=== PATIENT | male | born 1965 | race Caucasian/White ===

== ENCOUNTER 2020-03-25 11:14 | Inpatient (IN) | payer BC, OTHER ==
[~2020-03-25] VITALS: Ht 167.6 cm; Wt 86.6 kg
[2020-03-25] MEDS ORDERED: ACETAMINOPHEN ES 500 MG TABLET ONE (11:54)
[2020-03-25] MEDS ORDERED: ACETAMINOPHEN ES 500 MG TABLET PO ONE (12:00)
--- NOTE | 2020-03-25 12:00 | NUR ---
BIB DAUGHTER, WORSENING SOB, COUGH, FEVER AND CHILLS. +COVID ON THURSDAY. PATIENT A/OX4, ON ROOM AIR WITH SPO2 OF 88%. APPLIED O2 5LPM VIA NC, TOLERATING WELL AT THIS TIME. VS STABLE. ATTACHED TO THE MONITOR.
[2020-03-25 12:15] LABS: BASOPHILS % (AUTO) 0.2 % (0.0-2.0); EOSINOPHILS % (AUTO) 0.2 % (0.0-6.0); HEMATOCRIT 42 % (39-51); HEMOGLOBIN 14.4 g/dL (13.5-17.5); LYMPHOCYTES # (AUTO) 0.6 /CMM (0.8-4.8); MEAN CORPUSCULAR HGB CONC 34 g/dl (31.0-36.0); MEAN CORPUSCULAR VOLUME 90 fL (80-96); MONOCYTES # (AUTO) 0.5 /CMM (0.1-1.30); MONOCYTES % (AUTO) 4.3 % (2.0-12.0); NEUTROPHILS # (AUTO) 9.6 /CMM (1.8-8.9); NEUTROPHILS % (AUTO) 89.3 % (43.0-81.0); PLATELET COUNT (AUTO) 280 /CMM (150-450); WHITE BLOOD COUNT (AUTO) 10.8 K/uL (4.3-11.0)
--- NOTE | 2020-03-25 12:15 | NUR ---
BLOOD DRAWN AND SENT TO LAB. FLU AND COVID SWAB SENT.
[2020-03-25 12:32] LABS: ABG BASE EXCESS -0.9 mmol/L; ABG OXYGEN SATURATION 97.3 % (92.0-98.5); ABG PCO2 35.9 mmHg (35.0-45.0); ABG PH 7.425 (7.350-7.450); ABG PO2 92.9 mmHg (75.0-100.0); COHb 1.1 % (0.5-1.5); MetHb 0.3 % (0.0-1.5); O2Hb 95.9 % (94.0-97.0); SITE, ABG Right Radial; VENT MODE, BG nasal cannula
[2020-03-25 12:50] LABS: CALCIUM, SERUM 9.3 mg/dL (8.5-10.1); CARBON DIOXIDE 29 mmol/L (21-32); CHLORIDE 101 mmol/L (98-107); CREATININE 0.9 mg/dL (0.6-1.3); GLUCOSE 133 mg/dL (74-106); POTASSIUM 3.6 mmol/L (3.5-5.1); SODIUM SERUM 139 mmol/L (136-145); UREA NITROGEN, BLOOD 12 mg/dL (7-18)
[2020-03-25 13:02] LABS: ALANINE AMINOTRANSFERASE 36 U/L (12-78); ALBUMIN 3.4 g/dL (3.4-5.0); ALKALINE PHOSPHATASE 73 U/L (46-116); ASPARTATE AMINOTRANSFERASE 43 U/L (15-37); B-TYPE NATRIURETIC PEPTIDE 149 PG/ML (0-125); BILIRUBIN,TOTAL 0.7 mg/dL (0.2-1.0); TOTAL PROTEIN, SERUM 8.2 g/dL (6.4-8.2)
[2020-03-25] MEDS ORDERED: CHOL100040 PO (13:03)
[2020-03-25] MEDS ORDERED: ACET-868 PO (13:03)
[2020-03-25] MEDS ORDERED: MULT-447 PO (13:03)
[2020-03-25] MEDS ORDERED: METF-440 PO (13:03)
[2020-03-25] MEDS ORDERED: GUAI100S11 PO (13:03)
--- NOTE | 2020-03-25 13:13 | NUR ---
[facility] CALLED INFORMATION SYSTEMS ANALYST PAGED. ADEN GUERRA.
[2020-03-25 13:35] LABS: CREATINE KINASE, TOTAL 61 U/L (39-308); FERRITIN 994 ng/mL (8-388)
[2020-03-25 13:37] LABS: C-REACTIVE PROTEIN 35.7 mg/dL (0.0-0.9)
[2020-03-25] MEDS ORDERED: ONDANSETRON HCL/PF 4 MG/2 ML VIAL IVP PRN (14:00)
[2020-03-25] MEDS ORDERED: ACETAMINOPHEN 650 MG/SUPP.RECT RC PRN (14:00)
[2020-03-25] MEDS ORDERED: ALBUTEROL SULFATE 8 GM HFA.AER.AD IH PRN (14:00)
[2020-03-25 14:55] LABS: D-DIMER 0.95 mg/L(FEU (0.17-0.50)
--- NOTE | 2020-03-25 14:59 | NUR ---
PATIENT A/OX4, RESTING, NO DISTRESS NOTED, NEEDS ATTENDED. KEPT COMFORTABLE. ON O2 AT 5LPM VIA NC WITH SATURATION OF 98%. ORDERED FOOD FROM [employer].
[2020-03-25 16:04] LABS: BILIRUBIN,URINE NEGATIVE (NEGATIVE); COLOR,URINE YELLOW (YELLOW); LEUKOCYTE ESTERASE ,URINE NEGATIVE (NEGATIVE); NITRITE, URINE NEGATIVE (NEGATIVE); PROTEIN,URINE 30 mg/dl (NEGATIVE); UGLUCOSE NEGATIVE (NEGATIVE)
[2020-03-25 16:39] LABS: BACTERIA,URINE None seen /HPF (None Seen); SQUAMOUS EPITHELIAL CELL,UR 0-2 /HPF (None Seen); WBC,URINE 0-2 /HPF (0-3)
[2020-03-25] MEDS ORDERED: CEFTRIAXONE 1GM BAG (ER ONLY) 50 ML IV ONE (16:54)
[2020-03-25] MEDS ORDERED: DEXAMETHASONE SOD PHOSPHATE 10 MG/ML VIAL ONE (16:55)
[2020-03-25] MEDS ORDERED: DOXYCYCLINE HYCLATE (100 MG) 100 MG TABLET ONE (16:55)
[2020-03-25] MEDS: DEXAMETHASONE SOD PHOSPHATE 10 MG/ML VIAL IV SCH (17:00)
[2020-03-25] MEDS: DOXYCYCLINE HYCLATE (100 MG) 100 MG TABLET PO SCH (17:05)
[2020-03-25] MEDS: CEFTRIAXONE 1 G in IV D5W 50 ML IV SCH (17:05)
[2020-03-25] MEDS ORDERED: ENOXAPARIN SODIUM 40 MG/0.4 ML DISP.SYRIN SQ ONE (17:34)
[2020-03-25] MEDS: ENOXAPARIN SODIUM 40 MG/0.4 ML DISP.SYRIN SQ SCH (17:38)
--- NOTE | 2020-03-25 19:32 | NUR ---
rec'd pt in bed awake and alert, breathing evenly. o o3 at 3LPM via NC. kain well. denied any discomfort. needs attended. bed low locked. vss. will cont to monitor.
[2020-03-25] MEDS ORDERED: ACETAMINOPHEN 325 MG TABLET ONE (21:32)
[2020-03-25] MEDS: ACETAMINOPHEN 325 MG TABLET PO PRN (21:37)
--- NOTE | 2020-03-25 21:37 | NUR ---
tylenol given for c/o mild h/s. will cont to monitor
--- NOTE | 2020-03-26 02:16 | NUR ---
Patient is resting comfortably in bed with eyes closed. Easily aroused. VSS. will cont to moitor,
[2020-03-26 04:25] LABS: HEMATOCRIT 41 % (39-51); LYMPHOCYTES # (AUTO) 0.7 /CMM (0.8-4.8); LYMPHOCYTES % (AUTO) 5.9 % (20.0-44.0); MEAN CORPUSCULAR HGB CONC 34 g/dl (31.0-36.0); MEAN CORPUSCULAR VOLUME 91 fL (80-96); MONOCYTES # (AUTO) 0.3 /CMM (0.1-1.30); MONOCYTES % (AUTO) 2.6 % (2.0-12.0); NEUTROPHILS # (AUTO) 11.4 /CMM (1.8-8.9); NEUTROPHILS % (AUTO) 91.5 % (43.0-81.0); PLATELET COUNT (AUTO) 306 /CMM (150-450); RED BLOOD CELL COUNT(AUTO) 4.56 MIL/uL (4.5-6.0); WHITE BLOOD COUNT (AUTO) 12.5 K/uL (4.3-11.0)
[2020-03-26 04:40] LABS: ALBUMIN 3.1 g/dL (3.4-5.0); BILIRUBIN,TOTAL 0.7 mg/dL (0.2-1.0); CALCIUM, SERUM 10.1 mg/dL (8.5-10.1); CREATININE 0.9 mg/dL (0.6-1.3); TOTAL PROTEIN, SERUM 8.1 g/dL (6.4-8.2)
[2020-03-26] MEDS ORDERED: DOXYCYCLINE HYCLATE (100 MG) 100 MG TABLET ONE ×2 (06:34→17:06)
[2020-03-26] MEDS: DOXYCYCLINE HYCLATE (100 MG) 100 MG TABLET PO SCH ×2 (06:42→17:24)
--- NOTE | 2020-03-26 06:51 | NUR ---
pt in bed awake and akert. brathing evenly, on ongoing supplemental O2 at 4 LPM via NC. tolerated well. No SOB. NAD. needs attended. bed low locked . call light within reach,. will cont to monitor and will endorse to day shift for ULYSSES .
[2020-03-26] MEDS ORDERED: DEXAMETHASONE SOD PHOSPHATE 10 MG/ML VIAL ONE (08:33)
[2020-03-26] MEDS: DEXAMETHASONE SOD PHOSPHATE 10 MG/ML VIAL IV SCH (09:04)
--- NOTE | 2020-03-26 09:05 | NUR ---
PATIENT AWAKE ALERT AND ORIENTED X4, PROVIDED BREAKFAST. ON O2 AT 4LPM VIA NC WITH SPO2 OF 88%. INCREASED O2 TO 5LPM VIA NC. NO RESPIRATORY DISTRESS NOTED. NEEDS ATTENDED.
--- NOTE | 2020-03-26 13:22 | NUR ---
PATIENT CURRENTLY ON 5LPM VIA NC, NO DISTRESS NOTED. ATE LUNCH, NEEDS ATTENDED. WILL CONTINUE TO MONITOR.
--- NOTE | 2020-03-26 14:52 | NUR ---
PATIENT A/OX4, ON O2 AT 6LPM VIA NC WITH SPO2 OF 96%. GAVE INFORMATION REGARDING REMDESIVIR, HANDOUT PROVIDED, PER PATIENT WILL CALL FAMILY FIRST AND DISCUSS IT. WILL GET BACK TO ME IF HE AGREES OR NOT.
[2020-03-26] MEDS ORDERED: REMDESIVIR (CHARGED) 200 MG, *LOADING DOSE 1 EA in IV NS 0.9% 210 ML IV ONE (16:00)
[2020-03-26] MEDS ORDERED: ENOXAPARIN SODIUM 40 MG/0.4 ML DISP.SYRIN SQ ONE (17:06)
[2020-03-26] MEDS: CEFTRIAXONE 1 G in IV D5W 50 ML IV SCH (17:24)
[2020-03-26] MEDS: ENOXAPARIN SODIUM 40 MG/0.4 ML DISP.SYRIN SQ SCH (17:24)
--- NOTE | 2020-03-26 19:25 | NUR ---
PT RESTING COMFORTABLY IN BED. VITAL SIGNS STABLE. PT ON 6L NC, TOLERATING WELL O2 SAT 95%. STILL ON CONTINUOUS ACCOUNTING SUPPORT SPECIALIST AND PULSE OX, CALL LIGHT WITHIN REACH. WILL CONTINUE TO MONITOR.
--- NOTE | 2020-03-26 20:16 | NUR ---
Moy patterson in ED - 03/26/20 at 2239 by TIFFANIE PT O2 SAT 86% ON 6L NC, PLACED ON 10L SIMPLE FACE MASK TOLERATING WELL O2 SAT NOW 95%
--- NOTE | 2020-03-26 22:16 | NUR ---
PT O2 SAT 86% ON 6L NC, PLACED ON 10L SIMPLE FACE MASK TOLERATING WELL O2 SAT NOW 95%
--- NOTE | 2020-03-26 22:16 | NUR ---
NOTED TEMP 100.1 ALSO C/O MILD BODY ACHES. PER PRN ORDER, WILL ADMINISTER TYLENOL 650 MG PO X1 NOW
[2020-03-26] MEDS ORDERED: ACETAMINOPHEN 325 MG TABLET ONE (22:17)
--- NOTE | 2020-03-26 23:57 | NUR ---
PT SLEEPING COMFORTABLY IN BED. VITAL SIGNS STABLE. CALL LIGHT WITHIN REACH. STILL ON CONTINUOUS CHURN OPERATOR MARGARINE AND PULSE OX, WILL CONTINUE TO MONITOR
[2020-03-27 05:11] LABS: BASOPHILS % (AUTO) 0.1 % (0.0-2.0); HEMATOCRIT 39 % (39-51); HEMOGLOBIN 13.6 g/dL (13.5-17.5); LYMPHOCYTES # (AUTO) 1.3 /CMM (0.8-4.8); LYMPHOCYTES % (AUTO) 7.7 % (20.0-44.0); MEAN CORPUSCULAR HGB CONC 35 g/dl (31.0-36.0); MEAN CORPUSCULAR VOLUME 89 fL (80-96); MONOCYTES # (AUTO) 0.8 /CMM (0.1-1.30); MONOCYTES % (AUTO) 5.2 % (2.0-12.0); NEUTROPHILS # (AUTO) 14.2 /CMM (1.8-8.9); PLATELET COUNT (AUTO) 381 /CMM (150-450); RED BLOOD CELL COUNT(AUTO) 4.41 MIL/uL (4.5-6.0); WHITE BLOOD COUNT (AUTO) 16.4 K/uL (4.3-11.0)
[2020-03-27 05:30] LABS: ALBUMIN 2.9 g/dL (3.4-5.0); BILIRUBIN,DIRECT 0.1 mg/dL (0.0-0.2); BILIRUBIN,TOTAL 0.4 mg/dL (0.2-1.0); CALCIUM, SERUM 9.7 mg/dL (8.5-10.1); CREATININE 0.8 mg/dL (0.6-1.3); POTASSIUM 4.7 mmol/L (3.5-5.1); TOTAL PROTEIN, SERUM 7.5 g/dL (6.4-8.2)
--- NOTE | 2020-03-27 05:48 | NUR ---
M/S 116-2
[2020-03-27] MEDS ORDERED: DOXYCYCLINE HYCLATE (100 MG) 100 MG TABLET ONE (06:16)
[2020-03-27] MEDS: DOXYCYCLINE HYCLATE (100 MG) 100 MG TABLET PO SCH (06:22)
--- NOTE | 2020-03-27 06:27 | NUR ---
REPORT GIVEN TO PHILLIP VILLANUEVA FOR ULYSSES
--- NOTE | 2020-03-27 07:00 | NUR ---
RN NOTES PT IS A 54 YEAR OLD [place] SPEAKING MALE CAME FROM HOME TO HOSPITAL ER WITH REPORTS OF SHORTNESS OF BREATH CHILLS AND FEVER. PATIENT ARRIVED TO UNIT VIA GURNEY, PATIENT ALERT AND ORIENTED X4 PUPILS EQUAL AND REACTIVE TO LIGHT AND ACCOMMODATION. PT PREFERRED LANGUAGE OF COMMUNICATION IS [place] BUT CAN UNDERSTAND SINHALA WELL.NO SOB NOTED OR REPORTED AT THIS TIME. PT IS ON 4L OF OXYGEN VIA NASAL CANNULA. NO FEVER .NO PAIN OR DISCOMFORT REPORTED AT THIS TIME. PT HAS IV ACCES ON THE LEFT AC #18 NO PAIN REDNESS OR SWELLING AT IV SITE NOTED.PT IS AMBULATORY INDEPENDENT WITH ADL'S. SKIN IS WARM DRY AND INTACT NO BRUISING OR DISCOLORATION NOTED AT THIS TIME. ABDOMEN IS NON TENDER, NON DISTENDED TO PALPATION ACTIVE BOWEL SOUNDS HEARD IN ALL FOUR QUADRANTS UPON AUSCULTATION. BED IS LOCKED IN POSITION CALL LIGHT PLACED WITHIN REACH. PT ORIENTED TO UNIT AND ROOM ALL NEEDS MET AT THIS TIME WILL CONTINUE TO MONITOR.
--- NOTE | 2020-03-27 07:09 | NUR ---
PT TRANSFERRED PER ACLS PROTOCOL
[2020-03-27 08:00] VITALS: BP 137/65
[2020-03-27] MEDS: DEXAMETHASONE SOD PHOSPHATE 10 MG/ML VIAL IV SCH (09:59)
[2020-03-27 10:43] VITALS: BP 137/65
[2020-03-27 12:00] VITALS: BP 123/62
[2020-03-27] MEDS: ACETAMINOPHEN 325 MG TABLET PO PRN (13:32)
[2020-03-27 16:00] VITALS: BP 124/59
[2020-03-27] MEDS: REMDESIVIR (CHARGED) 100 MG in IV NS 0.9% 230 ML IV SCH (16:05)
[2020-03-27] MEDS: ENOXAPARIN SODIUM 40 MG/0.4 ML DISP.SYRIN SQ SCH (17:21)
--- NOTE | 2020-03-27 18:24 | NUR ---
RN NOTES PATIENT ALERT AND ORIENTED X4 PUPILS EQUAL AND REACTIVE TO LIGHT AND ACCOMMODATION. PT PREFERRED LANGUAGE OF COMMUNICATION IS LAO BUT CAN UNDERSTAND [place]ER[place] LEONEAN WELL.NO SOB NOTED OR REPORTED AT THIS TIME. PT IS ON 4L OF OXYGEN VIA NASAL CANNULA. NO FEVER .NO PAIN OR DISCOMFORT REPORTED AT THIS TIME. PT HAS IV ACCES ON THE LEFT AC #18 NO PAIN REDNESS OR SWELLING AT IV SITE NOTED.PT IS AMBULATORY INDEPENDENT WITH ADL'S. SKIN IS WARM DRY AND INTACT NO BRUISING OR DISCOLORATION NOTED AT THIS TIME. BED IS LOCKED IN POSITION CALL LIGHT PLACED WITHIN REACH. PT ORIENTED TO UNIT AND ROOM ALL NEEDS MET AT THIS TIME WILL . WILL ENDORSE TO ON COMING NURSE..
--- NOTE | 2020-03-27 19:50 | NUR ---
RN NOTES RECEIVED PATIENT IN BED. AO X 4. VERBALLY RESPONDING. ON O2 5L VIA NC. DENIES ANY SOB. NO DISTRESS NOTED. ON TELE MONITORING SR HR 64. L AC IV INTACT AND PATENT, FLUSHED ASEPTICALLY. ISOLATION PRECAUTION OBSERVED. ALL SAFETY MEASURES IMPLEMENTED PER PROTOCOL. CALL LIGHT WITHIN REACH. BED LOCKED IN LOWEST POSITION. SIDE RAILS UP X 2
[2020-03-27 20:00] VITALS: BP 132/62
[2020-03-28] VITALS (8 sets, daily range): BP systolic 125–135; BP diastolic 60–80
[2020-03-28 07:28] LABS: HEMATOCRIT 39 % (39-51); HEMOGLOBIN 13.2 g/dL (13.5-17.5); LYMPHOCYTES % (AUTO) 8.3 % (20.0-44.0); MEAN CORPUSCULAR HGB CONC 33 g/dl (31.0-36.0); MEAN CORPUSCULAR VOLUME 90 fL (80-96); MONOCYTES # (AUTO) 0.8 /CMM (0.1-1.30); MONOCYTES % (AUTO) 6.5 % (2.0-12.0); NEUTROPHILS # (AUTO) 10.4 /CMM (1.8-8.9); NEUTROPHILS % (AUTO) 85.2 % (43.0-81.0); PLATELET COUNT (AUTO) 452 /CMM (150-450); RED BLOOD CELL COUNT(AUTO) 4.38 MIL/uL (4.5-6.0); WHITE BLOOD COUNT (AUTO) 12.2 K/uL (4.3-11.0)
--- NOTE | 2020-03-28 07:35 | NUR ---
RN NOTES PT REMAINS IN BED BREATHING EVEN AND UNLABORED. WAS PUT ON 10L SIMPLE MASK DUE TO DESATING W/ NASAL CANNULA. PT TOLERATING SIMPLE MASK WITH O2 SAT 95 %. DENIES ANY SOB. TELE READING SR HR 64. STRICT ISOLATION PRECAUTION MAINTAINED. ALL SAFETY MEASURES IMPLEMENTED PER PROTOCOL. WILL ENDORSE TO [facility] SHIFT NURSE FOR ULYSSES.
[2020-03-28 07:47] LABS: ALBUMIN 2.8 g/dL (3.4-5.0); BILIRUBIN,DIRECT 0.2 mg/dL (0.0-0.2); BILIRUBIN,TOTAL 0.4 mg/dL (0.2-1.0); CALCIUM, SERUM 9.3 mg/dL (8.5-10.1); CREATININE 0.8 mg/dL (0.6-1.3); POTASSIUM 4.6 mmol/L (3.5-5.1); TOTAL PROTEIN, SERUM 7.1 g/dL (6.4-8.2)
--- NOTE | 2020-03-28 08:10 | NUR ---
PICKLING DRUM OPERATOR OPENING NOTE PATIENT IS IN BED RESTING. PATIENT IS IN NO ACUTE DISTRESS. NO SOB NOTED. PATIENT IS ON OXYGEN VIA MASK ON 10L. HOB ELEVATED. PATIENT IS ON VOCATIONAL SCHOOL TEACHER READING SR 77. SAFETY MEASURES ARE IN PLACE. PATIENTS BED IS LOCKED AND IN THE LOWEST POSITION WITH BED ALARM ON. SIDE RAILS ARE UP, CALL LIGHT WITHIN REACH. WILL CONTINUE TO MONITOR THROUGH OUT THE SHIFT.
[2020-03-28] MEDS: DEXAMETHASONE SOD PHOSPHATE 10 MG/ML VIAL IV SCH (09:02)
[2020-03-28 13:16] LABS: LYMPHOCYTES % (MANUAL) 8 % (16-48); MONOCYTES % (MANUAL) 6 % (0-11.0); NEUTROPHILS % (MANUAL) 86 (42-76)
[2020-03-28] MEDS: REMDESIVIR (CHARGED) 100 MG in IV NS 0.9% 230 ML IV SCH (15:30)
[2020-03-28] MEDS: ENOXAPARIN SODIUM 40 MG/0.4 ML DISP.SYRIN SQ SCH (17:56)
--- NOTE | 2020-03-28 17:56 | NUR ---
MEAT CUTTING BLOCK REPAIRER CLOSING NOTE PATIENT IS IN BED RESTING COMFORTABLY. PATIENT IS IN NO ACUTE DISTRESS. HOB ELEVATED. PATIENT IS ON 10L OXYGEN VIA MASK. PATIENT IS ON BEACH PATROL LIEUTENANT READING SR 75. SAFETY MEASURES ARE IN PLACE. BED IN THE LOWEST POSITION, WITH BED ALARM ON. CALL LIGHT WITHIN REACH. ENDORSE PATIENT TO THE POWER PLANT SUPERINTENDENT FOR ULYSSES.
--- NOTE | 2020-03-28 19:00 | NUR ---
furnace operator opening notes received patient in bed on 10 l via mask, tolerating well, no sob present or distress at this time , iv site to left ac removed leaking, new iv site to right ac #20 g intact and patent, on bus monitor sr 61, oriented to staff and call light and kept within reach, low bed and locked, fluids offered at this time remains comfortable, awaiting convalescent plasma, will continue to monitor.
--- NOTE | 2020-03-28 21:47 | NUR ---
learning disabled teacher notes pt c/o of indigestion hospitalist made aware, new order for maalox 30 ml prn,read back noted and carried out pt aware.
[2020-03-28] MEDS ORDERED: MAG HYDROX/AL HYDROX/SIMETH 30 ML UDC PO PRN (22:00)
--- NOTE | 2020-03-28 22:51 | NUR ---
furnace operator and tender notes convalescent plasma transfusion complete, no reactions during transfusion. vs 122/67,56,98.2,18,92% on 10 l via mask. tolerated well and states he feels fine.
[2020-03-29] VITALS: BP 122/68
[2020-03-29 04:23] VITALS: BP 130/68
[2020-03-29] MEDS: ACETAMINOPHEN 325 MG TABLET PO PRN (05:26)
--- NOTE | 2020-03-29 05:28 | NUR ---
alternative medicine practitioner notes pt complained of feeling chills and body aches, temperature taking 98.6. offered tylenol pt agreed. tylenol prn given as ordered, fluids offered will continue to monitor.
[2020-03-29 06:31] LABS: BASOPHILS % (AUTO) 0.1 % (0.0-2.0); EOSINOPHILS % (AUTO) 0.5 % (0.0-6.0); HEMATOCRIT 39 % (39-51); HEMOGLOBIN 13.5 g/dL (13.5-17.5); LYMPHOCYTES # (AUTO) 1.1 /CMM (0.8-4.8); LYMPHOCYTES % (AUTO) 7.5 % (20.0-44.0); MEAN CORPUSCULAR HGB CONC 34 g/dl (31.0-36.0); MEAN CORPUSCULAR VOLUME 89 fL (80-96); MONOCYTES # (AUTO) 1.1 /CMM (0.1-1.30); MONOCYTES % (AUTO) 7.2 % (2.0-12.0); NEUTROPHILS # (AUTO) 12.8 /CMM (1.8-8.9); NEUTROPHILS % (AUTO) 84.7 % (43.0-81.0); PLATELET COUNT (AUTO) 458 /CMM (150-450); RED BLOOD CELL COUNT(AUTO) 4.39 MIL/uL (4.5-6.0); WHITE BLOOD COUNT (AUTO) 15.2 K/uL (4.3-11.0)
--- NOTE | 2020-03-29 06:33 | NUR ---
rn cardiovascular icu closing notes patient in bed on 10 l via mask, tolerating well, no sob present or distress at this time , iv site to right ac #20 g intact and patent, on manufacturing technologist sr 71, call light kept within reach, low bed and locked, fluids offered at this time remains comfortable, tylenol prn was effective denies chills at this time,convalescent plasma given no adverse reactions , will continue to monitor and endorse to next shift.
[2020-03-29 07:03] LABS: ALBUMIN 2.7 g/dL (3.4-5.0); BILIRUBIN,DIRECT 0.2 mg/dL (0.0-0.2); BILIRUBIN,TOTAL 0.4 mg/dL (0.2-1.0); CALCIUM, SERUM 8.9 mg/dL (8.5-10.1); CREATININE 0.8 mg/dL (0.6-1.3); POTASSIUM 4.1 mmol/L (3.5-5.1); TOTAL PROTEIN, SERUM 6.9 g/dL (6.4-8.2)
--- NOTE | 2020-03-29 08:00 | NUR ---
RN Opening note Received patient in bed, AO x 4 able to responds all stimuli, Pt does no appears pain or distress. Skin is warm to touch keep clean/dry intact IV site, respiratory even and unlabored with oxygen at 10LPM mask O2sat 92%. Kept locked bed with elevated HOB for aspiration precaution and ensure airway and lowest bed foe safety. Call light within reach, will continue to monitor.
[2020-03-29] MEDS: DEXAMETHASONE SOD PHOSPHATE 10 MG/ML VIAL IV SCH (08:56)
[2020-03-29 09:46] LABS: LYMPHOCYTES % (MANUAL) 7 % (16-48); MONOCYTES % (MANUAL) 5 % (0-11.0); NEUTROPHILS % (MANUAL) 88 (42-76)
[2020-03-29 12:00] VITALS: BP 128/68
[2020-03-29] MEDS: REMDESIVIR (CHARGED) 100 MG in IV NS 0.9% 230 ML IV SCH (15:14)
[2020-03-29] MEDS: ENOXAPARIN SODIUM 40 MG/0.4 ML DISP.SYRIN SQ SCH (17:51)
--- NOTE | 2020-03-29 18:00 | NUR ---
RN closing Patient in bed resting, does no appears pain or discomfort. Skin is warm to touch kepp clean/dry, intact site on right AC, patient finished 3rd Remidesivir today and no adverse reaction observed. Respiratory even and unlabored with oxygen at 10LPM O2sat 91%, encouraged patient to use IS for lung exercise as tolerated. Kept elevated HOB for ensure air way and aspiration precaution and lowest bed for safety. Call light within reach, will endorse pole frame construction worker.
--- NOTE | 2020-03-29 19:45 | NUR ---
FLUTE GRINDER NOTES PATIENT IN BED, AWAKE, ALERT AND ORIENTED X 4. BREATHING EVEN AND UNLABORED ON 10L NC. SHOWS NO SIGNS OF ACUTE RESPIRATORY DISTRESS, NO ACUTE PAIN. TELE ST/SR. IV ON RAC 20G SL. SHOWS NO SIGNS INFILTRATION, NO REDNESS. SAFETY PRECAUTIONS IN PLACE. BED IN LOWEST POSITION, LOCKED, AND CALL LIGHT KEPT WITHIN REACH. WILL CONTINUE TO MONITOR.
[2020-03-29 20:00] VITALS: BP 122/53
[2020-03-30] VITALS (12 sets, daily range): BP systolic 108–139; BP diastolic 54–78
--- NOTE | 2020-03-30 07:12 | NUR ---
ENVIRONMENTAL SERVICES ASSISTANT NOTES PATIENT IN BED, ASLEEP, ALERT AND ORIENTED X 4. BREATHING EVEN AND UNLABORED ON 10L NC. SHOWS NO SIGNS OF ACUTE RESPIRATORY DISTRESS, NO ACUTE PAIN. TELE ST/SR. IV ON RAC 20G SL. SHOWS NO SIGNS INFILTRATION, NO REDNESS. ALL DUE MEDICATIONS GIVEN. ALL NEEDS ATTENED TO. SAFETY PRECAUTIONS IN PLACE. BED IN LOWEST POSITION, LOCKED, AND CALL LIGHT KEPT WITHIN REACH. WILL CONTINUE TO MONITOR. Addendum: 03/30/20 at 0809 by SHERRY HOLT RN PT DESATING ON 10L MASK. WAS CHANGED ON MIDNIGHT ON NONREBREATHER SATING 88- 93%.
[2020-03-30 07:24] LABS: BASOPHILS # (AUTO) 0.1 /CMM (0.0-0.2); BASOPHILS % (AUTO) 0.3 % (0.0-2.0); EOSINOPHILS % (AUTO) 2.1 % (0.0-6.0); HEMATOCRIT 42 % (39-51); HEMOGLOBIN 14.1 g/dL (13.5-17.5); LYMPHOCYTES # (AUTO) 1.3 /CMM (0.8-4.8); LYMPHOCYTES % (AUTO) 6.6 % (20.0-44.0); MEAN CORPUSCULAR HGB CONC 34 g/dl (31.0-36.0); MEAN CORPUSCULAR VOLUME 90 fL (80-96); MONOCYTES # (AUTO) 0.9 /CMM (0.1-1.30); MONOCYTES % (AUTO) 4.6 % (2.0-12.0); NEUTROPHILS # (AUTO) 16.5 /CMM (1.8-8.9); NEUTROPHILS % (AUTO) 86.4 % (43.0-81.0); PLATELET COUNT (AUTO) 552 /CMM (150-450); RED BLOOD CELL COUNT(AUTO) 4.68 MIL/uL (4.5-6.0); WHITE BLOOD COUNT (AUTO) 19.1 K/uL (4.3-11.0)
--- NOTE | 2020-03-30 07:30 | NUR ---
TELE/RN OPENING NOTE Received patient resting in bed, A&O x 4, [place] Citizen speaking. No complaints of pain/discomfort at this time. Breathing even and non-labored on 15 L via non-rebreather mask, saturating at 87-88%, stat ABG ordered. No respiratory or cardiac distress noted. On tele monitor, reading SR 79. IV access noted on R AC #20, patent and intact, and flushing well. Bed locked to its lowest position, side rails x 2 up, call light in hand. Will continue with current medical management.
[2020-03-30 07:39] LABS: ALBUMIN 2.7 g/dL (3.4-5.0); BILIRUBIN,DIRECT 0.2 mg/dL (0.0-0.2); BILIRUBIN,TOTAL 0.5 mg/dL (0.2-1.0); CALCIUM, SERUM 9.1 mg/dL (8.5-10.1); CREATININE 0.8 mg/dL (0.6-1.3); POTASSIUM 4.5 mmol/L (3.5-5.1); TOTAL PROTEIN, SERUM 7.1 g/dL (6.4-8.2)
[2020-03-30] MEDS: DEXAMETHASONE SOD PHOSPHATE 10 MG/ML VIAL IV SCH (08:20)
[2020-03-30 08:27] LABS: EOSINOPHILS % (MANUAL) 3 % (0-4); LYMPHOCYTES % (MANUAL) 14 % (16-48); MONOCYTES % (MANUAL) 3 % (0-11.0); NEUTROPHILS % (MANUAL) 80 (42-76)
--- NOTE | 2020-03-30 09:00 | NUR ---
TELE/RN NOTE Dr. Salguero ordered RT to put patient on high flow oxygen 60 L FiO2 100% + 15 L non-rebreather mask, currently saturating at 90-92%. Patient appears comfortable, no respiratory distress noted.
--- NOTE | 2020-03-30 11:30 | NUR ---
RN/NOTE Patient transferred to ICU status. Patient appears well and comfortable, A&O x 4, no acute distress noted. Denies and pain/discomfort at this time. On HFNC 60 L, FIO2 100%, and 15 L non-rebreather mask, saturating at 92-94%.
[2020-03-30] MEDS: REMDESIVIR (CHARGED) 100 MG in IV NS 0.9% 230 ML IV SCH (15:10)
[2020-03-30] MEDS: ENOXAPARIN SODIUM 40 MG/0.4 ML DISP.SYRIN SQ SCH (17:23)
--- NOTE | 2020-03-30 18:45 | NUR ---
ICU/RN CLOSING NOTE Patient in awake in prone position, A&O x 4. No complaints of pain/discomfort throughout shift. Breathing even and non-labored on HFNC 60 L, FIO2 100% + 15 L via non-rebreather mask, saturating at 92-93%. No respiratory or cardiac distress noted. On tele monitor, reading SR 75. IV access noted on R AC #20, patent and intact, and flushing well. Fall precautions maintained. Will endorse to mini shifter nurse.
[2020-03-31] VITALS (16 sets, daily range): BP systolic 87–134; BP diastolic 41–69
[2020-03-31] MEDS: DEXAMETHASONE SOD PHOSPHATE 10 MG/ML VIAL IV SCH (09:08)
[2020-03-31] MEDS: ENOXAPARIN SODIUM 40 MG/0.4 ML DISP.SYRIN SQ SCH (09:15)
[2020-03-31] MEDS: APIXABAN 5 MG TABLET PO SCH (18:54)
--- NOTE | 2020-03-31 19:10 | NUR ---
RN OPENING NOTES RECEIVED PT IN BED RESTING. A/O X4. GABONESE SPEAKING PRIMARILY. UNDERSTANDS VIETNAMESE, ABLE TO MAKE NEEDS KNOWN. PT IS ON 15L NON REBREATHER WITH HIGH FLOW AT 60LPM FIO2 100%. PT IS CURRENTLY AT 90% NO SOB OR RESP DISTRESS NOTED. PT TOLERATING WELL. BREATHING EVEN AND UNLABORED. ON CARDIAC MONITORING PT IS PRESENTING WITH NSR HEART OF 65 AT THIS TIME. IV SITE FLUSHED, SALINE LOCKED. PT DENIES PAIN AT THIS TIME. SAFETY MEASURES IN PLACE. HOB ELEVATED. SIDE RAILS UP X2. BED LOCKED IN LOWEST POSITION WITH CALL LIGHT WITHIN REACH, WILL CONTINUE TO MONITOR.
--- NOTE | 2020-03-31 19:47 | NUR ---
PATIENT IS ASLEEP IN SUPINE POSITION, A&oX4. NO COMPLAINTS OF PAIN/DISCOMFORT THROUGHOUT SHIFT. BREATHING EVEN AND NON-LABORED ON HFNC 60 L, FIO2 100% + 15L VIA NON REBREATHER MASK, SATURATING AT 90-93%. NO RESPIRATORY OR CARDIAC DISTRESS NOTED. ON TELE MONITOR, READING SR 66. IV ACCESS NOTED ON R AC #20, PATENT AND INTACT, AND FLUSHING WELL. FALL PRECAUTIONS MAINTAINED. BED KEPT AT LOWEST POSITION, CALL PANDEY WITHIN REACH, AND ALL HOSPITAL SAFETY PRECAUTIONS ARE IN PLACE. WILL ENDORSE TO AGRICULTURE INTERNSHIP NURSE.
--- NOTE | 2020-03-31 21:30 | NUR ---
CHANGED PULSE OX, SATURATION IS AT 94% AT THIS TIME. WILL CONTINUE TO MONITOR
[2020-04-01] VITALS (58 sets, daily range): BP systolic 92–133; BP diastolic 36–76
[2020-04-01 04:52] LABS: BASOPHILS % (AUTO) 0.1 % (0.0-2.0); EOSINOPHILS % (AUTO) 1.3 % (0.0-6.0); HEMATOCRIT 42 % (39-51); HEMOGLOBIN 14.1 g/dL (13.5-17.5); LYMPHOCYTES # (AUTO) 0.8 /CMM (0.8-4.8); LYMPHOCYTES % (AUTO) 3.6 % (20.0-44.0); MEAN CORPUSCULAR HGB CONC 33 g/dl (31.0-36.0); MEAN CORPUSCULAR VOLUME 91 fL (80-96); MONOCYTES # (AUTO) 0.7 /CMM (0.1-1.30); MONOCYTES % (AUTO) 3.3 % (2.0-12.0); NEUTROPHILS % (AUTO) 91.7 % (43.0-81.0); PLATELET COUNT (AUTO) 586 /CMM (150-450); RED BLOOD CELL COUNT(AUTO) 4.66 MIL/uL (4.5-6.0); WHITE BLOOD COUNT (AUTO) 20.8 K/uL (4.3-11.0)
[2020-04-01 05:10] LABS: CALCIUM, SERUM 9.1 mg/dL (8.5-10.1); CREATININE 0.8 mg/dL (0.6-1.3); POTASSIUM 4.1 mmol/L (3.5-5.1)
[2020-04-01 06:31] LABS: ABG OXYGEN SATURATION 91.1 % (92.0-98.5); ABG PCO2 31.4 mmHg (35.0-45.0); ABG PH 7.426 (7.350-7.450); ABG PO2 61.8 mmHg (75.0-100.0); AaDO2 619.8 mmHg; COHb 1.1 % (0.5-1.5); MetHb 0.1 % (0.0-1.5); SITE, ABG Left Radial
--- NOTE | 2020-04-01 06:31 | NUR ---
RN CLOSING NOTES NO SIGNIFICANT CHANGES. PT RESTED WELL THROUGHOUT NIGHT, EVEN WHEN ASLEEP O2 SAT 91-92% PT CURRENTLY AWAKE, RESTING IN BED. PT STILL ON SAME O2 SUPPLEMENTATION, WITH NRB AND HIGH FLOW, SATURATION 97% TOLERATING WELL. NO SOB OR RESP DISTRESS NOTED, BREATHING EVEN AND UNLABORED. STILL NSR HEART RATE OF 80 ON MACHINE LONG GOODS HELPER. PT DESAT DURING ORAL HYGIENE CARE, PT UNDERSTANDS TO PUT BACK NRB MASK. THEN SATURATION RETURNS TO NORMAL BASELINE. SAFETY MEASURES IN PLACE. HOB ELEVATED TOLERATED. SIDE RAILS X2. BED LOCKED IN LOWEST POSITION. CALL LIGHT WITHIN REACH WILL ENDORSE AM NURSE FOR CONTINUATION OF CARE.
[2020-04-01] MEDS: DEXAMETHASONE SOD PHOSPHATE 10 MG/ML VIAL IV SCH (08:29)
[2020-04-01] MEDS: APIXABAN 5 MG TABLET PO SCH ×2 (08:30→17:50)
[2020-04-01] MEDS: CODEINE/PROMETHAZINE HCL 5 ML UDC PO PRN ×2 (10:37→23:28)
[2020-04-01] MEDS ORDERED: ACETAMINOPHEN 325 MG TABLET PO ONE (14:30)
[2020-04-01] MEDS ORDERED: diphenhydrAMINE HCL 50 MG/ML VIAL IV ONE (14:30)
[2020-04-01] MEDS ORDERED: methylPREDNISolone SOD SUCC 40 MG/ML VIAL IV ONE (14:30)
[2020-04-01] MEDS ORDERED: TOCILIZUMAB 400 MG in IV NS 0.9% 80 ML IV ONE (15:00)
--- NOTE | 2020-04-01 21:40 | NUR ---
NO NGT ACCESS TO ADMIN NGT ORDERED MEDICATIONS. WILL MAKE MD OR MASTER PRINTER AWARE. Addendum: 04/01/20 at 2303 by MILDRED HOLT RN DISREGARD NOTE, WRONG PT
--- NOTE | 2020-04-01 23:06 | NUR ---
ENDORSED TO PHILLIP BLACK FOR CONTINUATION OF CARE.
[2020-04-02] VITALS (81 sets, daily range): BP systolic 95–182; BP diastolic 44–110
[2020-04-02 05:10] LABS: CALCIUM, SERUM 9.2 mg/dL (8.5-10.1); CREATININE 0.9 mg/dL (0.6-1.3)
[2020-04-02 05:12] LABS: BASOPHILS % (AUTO) 0.1 % (0.0-2.0); EOSINOPHILS % (AUTO) 2.2 % (0.0-6.0); HEMATOCRIT 43 % (39-51); HEMOGLOBIN 14.4 g/dL (13.5-17.5); LYMPHOCYTES % (AUTO) 5.7 % (20.0-44.0); MEAN CORPUSCULAR HGB CONC 34 g/dl (31.0-36.0); MEAN CORPUSCULAR VOLUME 90 fL (80-96); MONOCYTES # (AUTO) 0.5 /CMM (0.1-1.30); MONOCYTES % (AUTO) 2.8 % (2.0-12.0); NEUTROPHILS # (AUTO) 15.6 /CMM (1.8-8.9); NEUTROPHILS % (AUTO) 89.2 % (43.0-81.0); PLATELET COUNT (AUTO) 587 /CMM (150-450); RED BLOOD CELL COUNT(AUTO) 4.74 MIL/uL (4.5-6.0); WHITE BLOOD COUNT (AUTO) 17.5 K/uL (4.3-11.0)
--- NOTE | 2020-04-02 08:00 | NUR ---
RN NOTES RECEIVED PATIENT A/O X3, ON HIGH FLOW 60%, AND NON REBREATHER MASL 15L TOLORATING WELL., O2 SAT 90-92% AWAKE, REFUSED PAIN, NO SOB OR RESP DISTRESS NOTED, BREATHING EVEN AND UNLABORED. HOB ELEVATED TOLERATED. USING URINAL, TOLERATED BREAKFAST 50%, SIDE RAILS X2. BED LOCKED IN LOWEST POSITION. CALL LIGHT WITHIN REACH WILL MONITORING.
--- NOTE | 2020-04-02 08:17 | NUR ---
RN NOTE PATIENT AWAKE, A/OX4. NO COMPLAINTS OF PAIN/DISCOMFORT THROUGHOUT SHIFT. BREATHING EVEN AND NON-LABORED ON HFNC 60 L, FIO2 100% + 15L VIA NON REBREATHER MASK, SATURATING AT 90%. ON TELE MONITOR, READING SR 70'S. IV ACCESS NOTED ON R AC #20, PATENT AND INTACT, AND FLUSHING WELL. BED LOCKED AND IN LOWEST POSITION. CALL LIGHT WITHIN REACH. ENDORSED TO ONCOMING SHIFT.
[2020-04-02] MEDS: DEXAMETHASONE SOD PHOSPHATE 10 MG/ML VIAL IV SCH (10:04)
[2020-04-02] MEDS: APIXABAN 5 MG TABLET PO SCH ×2 (10:04→17:42)
[2020-04-02] MEDS: LISINOPRIL (20MG) 20 MG TABLET PO SCH (10:05)
--- NOTE | 2020-04-02 18:02 | NUR ---
RN NOTES PM CARE DONE, ADMINISTERED SCHEDULED MEDICATION. NO SIGNIFICANT OF RESPIRATORY CHANGES. O2 SAT 90%, WITH NRB 15L, AND HIGH FLOW 60% TOLERATING WELL. NO SOB OR RESP DISTRESS NOTED, BREATHING EVEN AND UNLABORED. INFUSING TKO ON RIGHT MIDLINE , SAFETY MEASURES IN PLACE. HOB ELEVATED TOLERATED. SIDE RAILS X2. BED LOCKED IN LOWEST POSITION. PATIENT SELF CARE, CALL LIGHT WITHIN REACH WILL ENDORSE ONCOMING NURSE FOR CONTINUATION OF CARE.
[2020-04-02] MEDS: CODEINE/PROMETHAZINE HCL 5 ML UDC PO PRN (22:45)
[2020-04-03] VITALS (37 sets, daily range): BP systolic 92–160; BP diastolic 45–106
[2020-04-03 04:47] LABS: BASOPHILS % (AUTO) 0.2 % (0.0-2.0); EOSINOPHILS % (AUTO) 1.5 % (0.0-6.0); HEMATOCRIT 43 % (39-51); HEMOGLOBIN 14.8 g/dL (13.5-17.5); LYMPHOCYTES # (AUTO) 0.7 /CMM (0.8-4.8); MEAN CORPUSCULAR HGB CONC 34 g/dl (31.0-36.0); MEAN CORPUSCULAR VOLUME 89 fL (80-96); MONOCYTES # (AUTO) 0.5 /CMM (0.1-1.30); MONOCYTES % (AUTO) 2.6 % (2.0-12.0); NEUTROPHILS # (AUTO) 16.8 /CMM (1.8-8.9); NEUTROPHILS % (AUTO) 91.7 % (43.0-81.0); PLATELET COUNT (AUTO) 573 /CMM (150-450); RED BLOOD CELL COUNT(AUTO) 4.82 MIL/uL (4.5-6.0); WHITE BLOOD COUNT (AUTO) 18.3 K/uL (4.3-11.0)
[2020-04-03 04:54] LABS: CREATININE 0.7 mg/dL (0.6-1.3); POTASSIUM 4.2 mmol/L (3.5-5.1)
--- NOTE | 2020-04-03 07:14 | NUR ---
RN NOTES NO CHANGES NOTED DURING SHIFT, REMAINED ON HIGH FLOW SATING WELL. SR ON TELE MONITOR. IV SITES INTACT FLUSHES WELL. ALL MEDICATION WERE GIVEN TOLERATED WELL, KEPT CLEAN DRY AND COMFORTABLE.NO S/S OF ACUTE DISTRESS NOTED. ALL SAFETY MEASURES IN PLACE, CALL LIGHT WITHIN REACH. ENDORSE TO AM NURSE FOR ULYSSES.
--- NOTE | 2020-04-03 07:43 | NUR ---
PT RECEIVED IN BED, ALERT AND ORIENTED X 4, CHILEAN SPEAKING. PT ON HIGH FLOW 60L AND 100% FIO2. PATIENT COMPLAINING OF SOB AT THIS TIME, O2 SATS 88-90%. RT AWARE. PT ON MONITOR SHOWING SB/SR, SKIN INTACT, PT HAS ANGIE MIDLINE AND RAC 20G INTACT, TKO. PT IN BED LOCKED LOWEST POSITION, CALL LIGHT WITHIN REACH, ALL SAFETY MEASURES IN PLACE. WILL CONTINUE TO MONITOR CLOSELY
[2020-04-03] MEDS: DEXAMETHASONE SOD PHOSPHATE 10 MG/ML VIAL IV SCH (07:58)
[2020-04-03] MEDS: LISINOPRIL (20MG) 20 MG TABLET PO SCH (07:59)
[2020-04-03] MEDS: APIXABAN 5 MG TABLET PO SCH ×2 (08:03→17:01)
--- NOTE | 2020-04-03 19:30 | NUR ---
RN NOTES RECEIVED PATIENT IN BED CONTINUES ON HIGH FLOE SATING 97%. TELE MONITOR SR IN 80'S. IV SITE INTACT PATENT FLUSHES WELL. ON CONTACT AND DROPLET ISOLATION. PATIENT IS CONTINENT WITH B&B. SAFETY MEASURES IN PLACE, JULIETTE LIGHT WITHIN REACH WILL CONT TO MONITOR FOR ULYSSES.
[2020-04-03] MEDS: CODEINE/PROMETHAZINE HCL 5 ML UDC PO PRN (21:08)
[2020-04-04] VITALS (64 sets, daily range): BP systolic 72–177; BP diastolic 35–104
[2020-04-04 04:24] LABS: BASOPHILS % (AUTO) 0.2 % (0.0-2.0); EOSINOPHILS % (AUTO) 1.9 % (0.0-6.0); HEMATOCRIT 49 % (39-51); HEMOGLOBIN 16.6 g/dL (13.5-17.5); LYMPHOCYTES # (AUTO) 1.1 /CMM (0.8-4.8); LYMPHOCYTES % (AUTO) 5.3 % (20.0-44.0); MEAN CORPUSCULAR HGB CONC 34 g/dl (31.0-36.0); MEAN CORPUSCULAR VOLUME 90 fL (80-96); MONOCYTES # (AUTO) 0.8 /CMM (0.1-1.30); MONOCYTES % (AUTO) 4.1 % (2.0-12.0); NEUTROPHILS # (AUTO) 18.2 /CMM (1.8-8.9); NEUTROPHILS % (AUTO) 88.5 % (43.0-81.0); PLATELET COUNT (AUTO) 631 /CMM (150-450); RED BLOOD CELL COUNT(AUTO) 5.47 MIL/uL (4.5-6.0); WHITE BLOOD COUNT (AUTO) 20.6 K/uL (4.3-11.0)
[2020-04-04 04:37] LABS: CALCIUM, SERUM 9.3 mg/dL (8.5-10.1); CREATININE 0.9 mg/dL (0.6-1.3); MAGNESIUM 2.6 mg/dL (1.8-2.4); PHOSPHORUS 4.1 mg/dL (2.5-4.9); POTASSIUM 4.3 mmol/L (3.5-5.1)
[2020-04-04] MEDS ORDERED: PROPOFOL 100 ML ONE (05:16)
[2020-04-04] MEDS ORDERED: SUCCINYLCHOLINE CHLORIDE 20 MG/ML VIAL IV ONE (05:30)
[2020-04-04] MEDS ORDERED: PROPOFOL 100 ML IV PRN (05:30)
[2020-04-04] MEDS ORDERED: ETOMIDATE 2 MG/ML VIAL IV ONE (05:30)
--- NOTE | 2020-04-04 05:30 | NUR ---
PATIENT REPORTED HAVING DIFFICULTY BREATHING, STAT ABG'S DONE RELAYED TO MD. PER DAVY HE IS COMING TO ASSES THE PATIENT. NEW ORDER TO INTUBATE THE PATIENT. ER DOC AND RT AT BED SIDE PATIENT INTUBATED ETT 7.5/25, AC-16, TV-450, FIO2-100, PEEP-5. SEDATED ON PROPOFOL AT 5MCG/KG/MIN.
[2020-04-04] MEDS: PROPOFOL 100 ML IV PRN ×6 (05:54→23:22)
--- NOTE | 2020-04-04 06:26 | NUR ---
pt intubated for respiratory distress sob and increased wob. pt sedated. Addendum: 04/04/20 at 0628 by BARI BECKER RT Amended: Links added.
[2020-04-04] MEDS ORDERED: NOREPINEPHRINE 4 MG/4 ML AMPUL IV ONE (06:30)
[2020-04-04] MEDS: NOREPINEPHRINE 8 MG in IV NS 0.9% 242 ML IV PRN ×4 (07:05→21:38)
[2020-04-04] MEDS: FENTANYL CITRAT IV 2,500 MCG in IV NS 0.9% 200 ML IV PRN ×2 (09:31→20:59)
[2020-04-04] MEDS ORDERED: SUCCINYLCHOLINE CHLORIDE 20 MG/ML VIAL ONE (09:32)
[2020-04-04] MEDS ORDERED: ETOMIDATE 2 MG/ML VIAL ONE (09:32)
[2020-04-04] MEDS: DEXAMETHASONE SOD PHOSPHATE 10 MG/ML VIAL IV SCH (09:52)
[2020-04-04] MEDS: APIXABAN 5 MG TABLET PO SCH ×2 (09:53→17:59)
[2020-04-04] MEDS: LISINOPRIL (20MG) 20 MG TABLET PO SCH (09:54)
[2020-04-04 11:12] LABS: ABG BASE EXCESS -6.2 mmol/L; ABG OXYGEN SATURATION 92.8 % (92.0-98.5); ABG PCO2 34.4 mmHg (35.0-45.0); ABG PH 7.346 (7.350-7.450); ABG PO2 71.7 mmHg (75.0-100.0); AaDO2 606.9 mmHg; COHb 0.1 % (0.5-1.5); MetHb 0.1 % (0.0-1.5); O2Hb 92.6 % (94.0-97.0); PEEP,BG 5 cm H2O; SITE, ABG Right Radial; VT, ABG 450 mL
--- NOTE | 2020-04-04 11:35 | NUR ---
PACKAGE DELIVERY DRIVER NOTES PT TRANSFERRED TO [facility]. BEDSIDE REPORT GIVEN TO MILDRED. Addendum: 04/04/20 at 1153 by BAHSIR CHIU RN DISREGARD DOCUMENTATION ABOVE. ERROR IN CHARTING.
--- NOTE | 2020-04-04 19:30 | NUR ---
RN NOTES RECEIVED PATIENT NON VERBAL ORALLY INTUBATED ON FULL VENT SUPPORT. VENT SETTING TOLERATING WELL ORDERED. SEDATED ON DIPRIVAN GTT AT 100MCG AND LEVO 0.3 INFUSING VIA SULLY MIDLINE INTACT, TELE MONITOR SR/ST. F/C DARNING WELL TO GRAVITY. NO S/S OF ACUTE DISTRESS NOTED. SAFETY MEASURES IN PLACE, CALL LIGHT WITHIN REACH. WILL CONT TO MONITOR FOR ULYSSES.
--- NOTE | 2020-04-04 19:38 | NUR ---
PT REC'D ORALLY INTUBATED VIA ETT 7.5 SECURED @ 28 CM [facility] WITH THE SETTINGS OF AC 16, 450, 70%,PEEP 10. NO RESPIRATORY DISTRESS NOTED AT THIS TIME. SX DONE . ALARMS ARE SET AND AUDIBLE. VENT PLUGGED INTO RED OUTLET. AMBU BAG@ BEDSIDE. WILL CONTINUE TO MONITOR T/O THE SHIFT.
[2020-04-05] VITALS (92 sets, daily range): BP systolic 59–157; BP diastolic 37–91
[2020-04-05] MEDS: PROPOFOL 100 ML IV PRN ×8 (01:38→18:50)
--- NOTE | 2020-04-05 02:00 | NUR ---
PT REMAINED ON SAME VENT SETTING TOLERATED WELL.WILL CONTINUE TO MONITOR
--- NOTE | 2020-04-05 03:00 | NUR ---
BED BATH RENDERED PATIENT TOLERATED WELL, KEPT CLEAN DRY AND COMFORTABLE. NO DISTRESS NOTED.
[2020-04-05 04:21] LABS: BASOPHILS # (AUTO) 0.1 /CMM (0.0-0.2); BASOPHILS % (AUTO) 0.3 % (0.0-2.0); EOSINOPHILS % (AUTO) 0.9 % (0.0-6.0); HEMATOCRIT 50 % (39-51); HEMOGLOBIN 16.4 g/dL (13.5-17.5); LYMPHOCYTES # (AUTO) 1.1 /CMM (0.8-4.8); LYMPHOCYTES % (AUTO) 3.1 % (20.0-44.0); MEAN CORPUSCULAR HGB CONC 33 g/dl (31.0-36.0); MEAN CORPUSCULAR VOLUME 91 fL (80-96); MONOCYTES # (AUTO) 1.5 /CMM (0.1-1.30); MONOCYTES % (AUTO) 4.2 % (2.0-12.0); NEUTROPHILS # (AUTO) 32.5 /CMM (1.8-8.9); NEUTROPHILS % (AUTO) 91.5 % (43.0-81.0); PLATELET COUNT (AUTO) 697 /CMM (150-450); RED BLOOD CELL COUNT(AUTO) 5.43 MIL/uL (4.5-6.0)
[2020-04-05 04:32] LABS: CALCIUM, SERUM 8.8 mg/dL (8.5-10.1); CREATININE 2.2 mg/dL (0.6-1.3); MAGNESIUM 3.3 mg/dL (1.8-2.4); POTASSIUM 5.9 mmol/L (3.5-5.1)
[2020-04-05 04:38] LABS: PHOSPHORUS 9.9 mg/dL (2.5-4.9)
[2020-04-05 05:06] LABS: WHITE BLOOD COUNT (AUTO) 35.6 K/uL (4.3-11.0)
[2020-04-05 06:00] LABS: LYMPHOCYTES % (MANUAL) 4 % (16-48); METAMYELOCYTES % 1 % (0-0); MONOCYTES % (MANUAL) 2 % (0-11.0); MYELOCYTES % 1 % (0-0); NEUTROPHILS % (MANUAL) 92 (42-76)
[2020-04-05] MEDS ORDERED: NOREPINEPHRINE 4 MG/4 ML AMPUL IV ONE (06:21)
[2020-04-05] MEDS: NOREPINEPHRINE 8 MG in IV NS 0.9% 242 ML IV PRN ×2 (06:48→09:12)
--- NOTE | 2020-04-05 07:30 | NUR ---
PT SEDATED W HOB ELEVATED. VENT SETTINGS ORDERED. SAO2 85-95%. NO SIGNS OF DISTRESS NOTED. ST 100-130S ON TELE. OGT 60 CM AT THE LIP. AUSCULTATED FOR PLACEMENT AND CHECKED RESIDUALS BEFORE EACH FLUSH AND VEGETABLE WORKER. DYER INTACT DRAINING DARK YELLOW URINE. SULLY MIDLINE AND RAC FLUSHED AND DRESSING INTACT. NO SIGNS OF INFILTRATION. ORDERED MEDICATIONS TITRATED ORDERED BY MD. PT VS MONITORED Q15MIN AND NEEDED. REPORTED TO MD NEEDED THROUGHOUT THE SHIFT. LABS MONITORED NEEDED. FAMILY AWARE OF PT STATUS. MD AWARE OF PT STATUS. TURNED Q2H AND REPOSITIONED. ENDORSED PLAN OF CARE TO PM RN. ALL HOSPITAL POLICY SAFETY PRECAUTIONS IMPLEMENTED. RAILS UPX2, HOB ELEVATED 30 DEGREES, BED LOW, LOCKED. Addendum: 04/05/20 at 2014 by MILDRED HOLT RN INCORRECT TIME
[2020-04-05 08:19] LABS: ABG BASE EXCESS -10.7 mmol/L; ABG OXYGEN SATURATION 94.8 % (92.0-98.5); ABG PCO2 83.3 mmHg (35.0-45.0); ABG PH 7.044 (7.350-7.450); AaDO2 322.6 mmHg; COHb 1.1 % (0.5-1.5); MetHb 0.5 % (0.0-1.5); O2Hb 93.3 % (94.0-97.0); PEEP,BG 10 cm H2O; SITE, ABG Right Brachial; VT, ABG 450 mL
--- NOTE | 2020-04-05 08:22 | NUR ---
vent changes below per dr. vargas: AC 28 VT 500 ml rn notified on vent changes made. Addendum: 04/05/20 at 0823 by PAOLA CHAMPION RT Amended: Links added.
[2020-04-05] MEDS: LISINOPRIL (20MG) 20 MG TABLET PO SCH (09:00)
[2020-04-05] MEDS: APIXABAN 5 MG TABLET PO SCH ×2 (09:18→18:33)
--- NOTE | 2020-04-05 09:18 | NUR ---
HELD ORDERED LISINOPRIL SBP <90 AND IS CONTROLLED W THE ORDERED LEVOPHED.
[2020-04-05 10:29] LABS: ABG BASE EXCESS -10.6 mmol/L; ABG OXYGEN SATURATION 95.5 % (92.0-98.5); ABG PCO2 50.4 mmHg (35.0-45.0); ABG PH 7.174 (7.350-7.450); ABG PO2 83.9 mmHg (75.0-100.0); COHb 0.3 % (0.5-1.5); MetHb 0.3 % (0.0-1.5); O2Hb 94.9 % (94.0-97.0); PEEP,BG 10 cm H2O; SITE, ABG Left Brachial; VT, ABG 500 mL
--- NOTE | 2020-04-05 10:34 | NUR ---
VENT CHANGES BELOW PER DR. ALEXIS: VT 550 ML RN NOTIFIED ON VENT CHANGES MADE. Addendum: 04/05/20 at 1035 by PAOLA CHAMPION RT Amended: Links added.
[2020-04-05] MEDS: FENTANYL CITRAT IV 2,500 MCG in IV NS 0.9% 200 ML IV PRN (10:51)
[2020-04-05] MEDS: NOREPINEPHRINE 32 MG in IV NS 0.9% 218 ML IV PRN ×2 (11:02→18:32)
[2020-04-05 13:27] LABS: BASOPHILS # (AUTO) 0.1 /CMM (0.0-0.2); BASOPHILS % (AUTO) 0.3 % (0.0-2.0); EOSINOPHILS % (AUTO) 0.7 % (0.0-6.0); HEMATOCRIT 50 % (39-51); HEMOGLOBIN 16.6 g/dL (13.5-17.5); LYMPHOCYTES # (AUTO) 1.3 /CMM (0.8-4.8); LYMPHOCYTES % (AUTO) 3.8 % (20.0-44.0); MEAN CORPUSCULAR HGB CONC 33 g/dl (31.0-36.0); MEAN CORPUSCULAR VOLUME 91 fL (80-96); MONOCYTES # (AUTO) 1.4 /CMM (0.1-1.30); NEUTROPHILS # (AUTO) 32.5 /CMM (1.8-8.9); NEUTROPHILS % (AUTO) 91.2 % (43.0-81.0); PLATELET COUNT (AUTO) 604 /CMM (150-450); RED BLOOD CELL COUNT(AUTO) 5.54 MIL/uL (4.5-6.0)
[2020-04-05 13:56] LABS: CALCIUM, SERUM 8.5 mg/dL (8.5-10.1); CREATININE 2.7 mg/dL (0.6-1.3); POTASSIUM 4.7 mmol/L (3.5-5.1)
[2020-04-05 14:05] LABS: WHITE BLOOD COUNT (AUTO) 35.7 K/uL (4.3-11.0)
[2020-04-05 14:33] LABS: ABG BASE EXCESS -4.4 mmol/L; ABG OXYGEN SATURATION 94.1 % (92.0-98.5); ABG PCO2 40.1 mmHg (35.0-45.0); ABG PH 7.338 (7.350-7.450); ABG PO2 68.6 mmHg (75.0-100.0); AaDO2 604.3 mmHg; COHb 0.3 % (0.5-1.5); MetHb 0.5 % (0.0-1.5); O2Hb 93.3 % (94.0-97.0); PEEP,BG 10 cm H2O; SITE, ABG Right Radial; VT, ABG 550 mL
[2020-04-05] MEDS: PHENYLEPHRINE 100 MG in IV NS 0.9% 240 ML IV PRN (17:40)
[2020-04-05] MEDS ORDERED: IV NS 0.9% 500 ML IV ONE (18:30)
[2020-04-05] MEDS: IV NS 0.9% 1,000 ML IV PRN (18:52)
--- NOTE | 2020-04-05 19:00 | NUR ---
Received patient orally intubated on AC mode,PEEP=10 ,labored breathing with deep inspiratory effort..Covid +.Unresponsive, but on sedation with Propofol drip and on Fentanyl drip. S/P code today. Tachycardic DI=442's. Hypotensive at 1900 On Levophed drip and Neosynephrine drip for BP support . OGT (will start feeding if Pump available).
[2020-04-05 19:23] LABS: BAND % (MANUAL) 1 % (0.0-5.0); LYMPHOCYTES % (MANUAL) 1 % (16-48); MONOCYTES % (MANUAL) 2 % (0-11.0); NEUTROPHILS % (MANUAL) 96 (42-76)
--- NOTE | 2020-04-05 19:30 | NUR ---
PT SEDATED W HOB ELEVATED. VENT SETTINGS ORDERED. SAO2 85-95%. NO SIGNS OF DISTRESS NOTED. ST 100-130S ON TELE. OGT 60 CM AT THE LIP. AUSCULTATED FOR PLACEMENT AND CHECKED RESIDUALS BEFORE EACH FLUSH AND ENVIRONMENTAL RESEARCH PROJECT MANAGER. DYER INTACT DRAINING DARK YELLOW URINE. SULLY MIDLINE AND RAC FLUSHED AND DRESSING INTACT. NO SIGNS OF INFILTRATION. ORDERED MEDICATIONS TITRATED ORDERED BY MD. PT VS MONITORED Q15MIN AND NEEDED. REPORTED TO MD NEEDED THROUGHOUT THE SHIFT. LABS MONITORED NEEDED. FAMILY AWARE OF PT STATUS. MD AWARE OF PT STATUS. TURNED Q2H AND REPOSITIONED. ENDORSED PLAN OF CARE TO PM RN. ALL HOSPITAL POLICY SAFETY PRECAUTIONS IMPLEMENTED. RAILS UPX2, HOB ELEVATED 30 DEGREES, BED LOW, LOCKED.
[2020-04-05] MEDS ORDERED: VANCOMYCIN 1 GM in IV D5W 250 ML IV SCH (20:00)
[2020-04-05] MEDS: MEROPENEM 1 G in IV NS 0.9% 100 ML IV SCH (21:26)
[2020-04-06] VITALS (86 sets, daily range): BP systolic 85–159; BP diastolic 34–87
--- NOTE | 2020-04-06 | NUR ---
more responsive to pain,with cough and gag, BP more stable,weaning down on Pressors as tolerated.
[2020-04-06] MEDS: PHENYLEPHRINE 100 MG in IV NS 0.9% 240 ML IV PRN ×2 (00:13→15:13)
[2020-04-06] MEDS: NOREPINEPHRINE 32 MG in IV NS 0.9% 218 ML IV PRN ×2 (00:16→15:16)
[2020-04-06] MEDS: PROPOFOL 100 ML IV PRN ×7 (02:13→21:33)
[2020-04-06] MEDS: FENTANYL CITRAT IV 2,500 MCG in IV NS 0.9% 200 ML IV PRN ×2 (02:25→17:37)
[2020-04-06] MEDS: JEVITY 1.2 CAL 1,000 ML BOTTLE GT PRN (02:36)
--- NOTE | 2020-04-06 04:00 | NUR ---
More responsive ,getting restless at times, moves extremities,will put back /obtain order for wrist restraints.Increased Propofol drip as tolerated.
[2020-04-06 05:50] LABS: CREATININE 1.2 mg/dL (0.6-1.3); POTASSIUM 4.6 mmol/L (3.5-5.1)
[2020-04-06 06:08] LABS: ABG BASE EXCESS -2.7 mmol/L; ABG OXYGEN SATURATION 88.6 % (92.0-98.5); ABG PCO2 44.4 mmHg (35.0-45.0); ABG PH 7.337 (7.350-7.450); ABG PO2 56.9 mmHg (75.0-100.0); AaDO2 466.9 mmHg; COHb 0.3 % (0.5-1.5); MetHb 0.1 % (0.0-1.5); O2Hb 88.2 % (94.0-97.0); SITE, ABG Right Radial
[2020-04-06] MEDS: IV NS 0.9% 1,000 ML IV PRN ×2 (06:15→17:29)
--- NOTE | 2020-04-06 07:15 | NUR ---
CASH SPECIALIST NOTES RECEIVED PATIENT SEDATED , RESPONSIVE TO DEEP PAIN STIMULI , TOLERATING CURRENT VENT SETTINGS WITH SPO2 OF 98% , ETT 7.5/[address] , ST 102 ON BEDSIDE MONITOR , OGT PATENT AND INTACT WITH JEVITY @ 40ML/HR TOLERATING WELL WITH NO RESIDUALS NOTED , SULLY MIDLINE WITH LEVOPHED @ 0.3MCG/KG/MIN , NEOSYNEPRINE @1MCG/KG/MIN , DIPRIVAN @ 50MCG/KG/MIN , FENTANYL @ 2MCG/KG/MIN , NS @100ML/HR INFUSING WELL , R AC # 20 PATENT AND INTACT , ALL NEEDS ATTENDED , WILL CONTINUE TO MONITOR
[2020-04-06] MEDS: LISINOPRIL (20MG) 20 MG TABLET PO SCH (08:38)
[2020-04-06] MEDS: MEROPENEM 1 G in IV NS 0.9% 100 ML IV SCH ×2 (08:39→21:30)
[2020-04-06] MEDS: APIXABAN 5 MG TABLET PO SCH ×2 (08:39→17:29)
[2020-04-06] MEDS ORDERED: EPINEPHRINE (1:10,000) SYRINGE 1 MG/10 ML DISP.SYRIN IVP ONE (09:18)
[2020-04-06] MEDS ORDERED: FEE EMEERGENCY 1 MIN EA MC ONE (09:18)
[2020-04-06] MEDS ORDERED: SODIUM BICARBONATE SYR 50 MEQ/50 ML DISP.SYRIN IV ONE (09:18)
[2020-04-06 09:49] LABS: BILIRUBIN,DIRECT 0.1 mg/dL (0.0-0.2); BILIRUBIN,TOTAL 0.3 mg/dL (0.2-1.0)
--- NOTE | 2020-04-06 11:10 | NUR ---
PROGRAMMER OPERATOR NUMERICAL CONTROL NOTES SEEN AND EVALUATED BY DR ALEXIS , DISCUSSED LABS , CURRENT VENT SETTINGS AND CHEST XRAY RESULTS , PT LOW GRADE TEMP OF 99 F , PT ON LEVO @0.2MCG/KG/MIN , NEOSYNEPRINE @ 1MCG/KG/MIN , FENTANYL @ 2MCG/KG.MIN , DIPRIVAN @ 50MCG/KG/MIN , MD AWARE , PER MD INCREASE SEDATION PT OVER BREATHING THE VENT .
[2020-04-06] MEDS: VANCOMYCIN 1 GM in IV D5W 250 ML IV SCH (17:28)
[2020-04-07] VITALS (96 sets, daily range): BP systolic 67–197; BP diastolic 34–108
[2020-04-07] MEDS: PROPOFOL 100 ML IV PRN ×9 (00:38→23:22)
[2020-04-07] MEDS: JEVITY 1.2 CAL 1,000 ML BOTTLE GT PRN (02:00)
[2020-04-07] MEDS: VANCOMYCIN 1 GM in IV D5W 250 ML IV SCH (04:30)
[2020-04-07] MEDS: FENTANYL CITRAT IV 2,500 MCG in IV NS 0.9% 200 ML IV PRN ×2 (04:38→12:32)
[2020-04-07 04:55] LABS: BASOPHILS # (AUTO) 0.2 /CMM (0.0-0.2); BASOPHILS % (AUTO) 1.1 % (0.0-2.0); EOSINOPHILS % (AUTO) 2.8 % (0.0-6.0); HEMATOCRIT 38 % (39-51); HEMOGLOBIN 12.8 g/dL (13.5-17.5); LYMPHOCYTES # (AUTO) 1.3 /CMM (0.8-4.8); LYMPHOCYTES % (AUTO) 6.9 % (20.0-44.0); MEAN CORPUSCULAR HGB CONC 34 g/dl (31.0-36.0); MEAN CORPUSCULAR VOLUME 91 fL (80-96); MONOCYTES # (AUTO) 0.7 /CMM (0.1-1.30); MONOCYTES % (AUTO) 3.5 % (2.0-12.0); NEUTROPHILS # (AUTO) 15.8 /CMM (1.8-8.9); NEUTROPHILS % (AUTO) 85.7 % (43.0-81.0); PLATELET COUNT (AUTO) 345 /CMM (150-450); RED BLOOD CELL COUNT(AUTO) 4.15 MIL/uL (4.5-6.0); WHITE BLOOD COUNT (AUTO) 18.5 K/uL (4.3-11.0)
[2020-04-07 05:01] LABS: CALCIUM, SERUM 7.8 mg/dL (8.5-10.1); CREATININE 0.8 mg/dL (0.6-1.3); POTASSIUM 4.8 mmol/L (3.5-5.1)
[2020-04-07 05:40] LABS: ABG OXYGEN SATURATION 97.9 % (92.0-98.5); ABG PCO2 39.7 mmHg (35.0-45.0); ABG PH 7.379 (7.350-7.450); ABG PO2 109.7 mmHg (75.0-100.0); AaDO2 491.3 mmHg; COHb 0.4 % (0.5-1.5); MetHb 0.1 % (0.0-1.5); O2Hb 97.4 % (94.0-97.0); PEEP,BG 10 cm H2O; SITE, ABG Right Radial; VENT MODE, BG AC 28 550 90% +10; VT, ABG 550 mL
[2020-04-07] MEDS: PHENYLEPHRINE 100 MG in IV NS 0.9% 240 ML IV PRN ×3 (05:55→17:35)
[2020-04-07] MEDS: IV NS 0.9% 1,000 ML IV PRN ×2 (06:46→15:56)
--- NOTE | 2020-04-07 07:15 | NUR ---
TAILINGS DAM LABORER NOTES RECEIVED PATIENT SEDATED , RESPONSIVE TO DEEP PAIN STIMULI , TOLERATING CURRENT VENT SETTINGS WITH SPO2 OF 95% , ETT 7.5/[address] , SR85 ON BEDSIDE MONITOR , OGT PATENT AND INTACT WITH JEVITY @ 40ML/HR TOLERATING WELL WITH NO RESIDUALS NOTED , SULLY PICC LINE WITH LEVOPHED @ 0.1MCG/KG/MIN , NEOSYNEPRINE @3MCG/KG/MIN , DIPRIVAN @ 70MCG/KG/MIN , FENTANYL @ 2MCG/KG/MIN , NS @100ML/HR INFUSING WELL , R AC # 20 PATENT AND INTACT , ALL NEEDS ATTENDED , WILL CONTINUE TO MONITOR
[2020-04-07] MEDS: LISINOPRIL (20MG) 20 MG TABLET PO SCH (08:46)
[2020-04-07] MEDS: APIXABAN 5 MG TABLET PO SCH ×2 (08:47→16:56)
[2020-04-07] MEDS: MEROPENEM 1 G in IV NS 0.9% 100 ML IV SCH ×2 (08:48→20:20)
[2020-04-07 12:44] LABS: ABG BASE EXCESS -2.9 mmol/L; ABG OXYGEN SATURATION 89.9 % (92.0-98.5); ABG PCO2 45.6 mmHg (35.0-45.0); ABG PH 7.325 (7.350-7.450); ABG PO2 60.4 mmHg (75.0-100.0); AaDO2 353.5 mmHg; COHb 0.6 % (0.5-1.5); MetHb 0.6 % (0.0-1.5); O2Hb 88.8 % (94.0-97.0); PEEP,BG 8 cm H2O; SITE, ABG Left Brachial; VT, ABG 500 mL
--- NOTE | 2020-04-07 14:12 | NUR ---
METAL SORTER NOTES REPEAT CHEST XRAY RESULTS RELAYED DR DR ZA MD AWARE
[2020-04-07] MEDS: VANCOMYCIN 1.25 GM in IV D5W 250 ML IV SCH (17:37)
--- NOTE | 2020-04-07 19:30 | NUR ---
ICU OPENING NOTES RECEIVED PATIENT;SEDATED WITH DIPRIVAN AT 70MCG/KG/MIN. PATIENT IN NO S/SX OF ACUTE DISTRESS AT THIS TIME. NO SOB NOTED. PATIENT'S BREATHING IS EVEN AND UNLABORED. PATIENT ON MECHANICAL VENT; SETTINGS PRESCRIBED; PT TOLERATED WELL. AMBU BAG AT BED SIDE ALARMS SET PER PROTOCOL AND AUDIBLE. VENT PLUGGED IN TO RED OUTLET. NO DISTRESS NOTED. OGT IN PLACED. PLACEMENT VERIFIED WITH AUSCULTATION. NO RESIDUAL TAKEN AT THIS TIME. NOTED IV SITE ON R AC #20 AND R UA MIDLINE ; BOTH PATENT, INTACT AND FLUSHING WELL; NO S/S OF INFECTION OR INFILTRATION. WITH IV FLUID RUNNING ORDERED. PATIENT ONGOING ENDY DRIP ; RECEIVED @ DOSE RATE OF 2.5MCG/KG/MIN; MONITORED AND INFUSING PER PROTOCOL.` DYER CATH IN PLACE, MODERATE URINE OUTPUT NOTED. SAFETY MEASURES HAVE BEEN PROVIDED AND IMPLEMENTED. PATIENT BED ALARM IS ON. HEAD OF BED ELEVATED. BED IS LOCKED, IN LOWEST POSITION AND SIDE RAILS UP. CALL LIGHT WITHIN REACH OF THE PATIENT. APPLICABLE ISOLATION PRECAUTIONS IN PLACE. WILL CONTINUE TO MONITOR AND REASSESS FOR ANY CHANGES AND WILL CARRY OUT ANY ONGOING AND ACTIVE MD ORDER. Addendum: 04/08/20 at 0651 by IGNACIO DALLAS RN ADDENDUM PT ALSO HAS RUNNING FENTANYL DRIP @2MCG AT THE TIME OF RECEIVED. MONITORED AND INFUSING PER PROTOCOL.`
--- NOTE | 2020-04-07 22:00 | NUR ---
RN NOTES PATIENT REMAINS IN NO ACUTE RESPIRATORY DISTRESS AT THIS TIME, NO CHANGES TO CONDITION/STATUS. ARCHITECT WELL AWARE. WILL CONTINUE TO MONITOR AND REASSESS FOR ANY CHANGES THROUGHOUT THE SHIFT
[2020-04-08] VITALS (83 sets, daily range): BP systolic 95–170; BP diastolic 39–78
[2020-04-08] MEDS: PHENYLEPHRINE 100 MG in IV NS 0.9% 240 ML IV PRN ×2 (01:42→11:51)
[2020-04-08] MEDS: PROPOFOL 100 ML IV PRN ×8 (02:08→21:36)
[2020-04-08] MEDS: FENTANYL CITRAT IV 2,500 MCG in IV NS 0.9% 200 ML IV PRN ×2 (03:00→18:10)
[2020-04-08] MEDS: IV NS 0.9% 1,000 ML IV PRN (03:03)
--- NOTE | 2020-04-08 04:00 | NUR ---
RN NOTES PATIENT REMAINS IN NO ACUTE RESPIRATORY DISTRESS AT THIS TIME, NO CHANGES TO CONDITION/STATUS. GUZZLER BUILDER WELL AWARE. WILL CONTINUE TO MONITOR AND REASSESS FOR ANY CHANGES THROUGHOUT THE SHIFT
[2020-04-08] MEDS: VANCOMYCIN 1.25 GM in IV D5W 250 ML IV SCH (04:37)
[2020-04-08 04:52] LABS: BASOPHILS # (AUTO) 0.1 /CMM (0.0-0.2); BASOPHILS % (AUTO) 0.4 % (0.0-2.0); EOSINOPHILS % (AUTO) 2.6 % (0.0-6.0); HEMATOCRIT 38 % (39-51); HEMOGLOBIN 12.4 g/dL (13.5-17.5); LYMPHOCYTES # (AUTO) 0.9 /CMM (0.8-4.8); LYMPHOCYTES % (AUTO) 6.8 % (20.0-44.0); MEAN CORPUSCULAR HGB CONC 33 g/dl (31.0-36.0); MEAN CORPUSCULAR VOLUME 92 fL (80-96); MONOCYTES # (AUTO) 0.6 /CMM (0.1-1.30); MONOCYTES % (AUTO) 4.3 % (2.0-12.0); NEUTROPHILS # (AUTO) 11.4 /CMM (1.8-8.9); NEUTROPHILS % (AUTO) 85.9 % (43.0-81.0); PLATELET COUNT (AUTO) 215 /CMM (150-450); WHITE BLOOD COUNT (AUTO) 13.3 K/uL (4.3-11.0)
[2020-04-08 05:06] LABS: CALCIUM, SERUM 8.2 mg/dL (8.5-10.1); CREATININE 0.6 mg/dL (0.6-1.3); POTASSIUM 4.8 mmol/L (3.5-5.1)
--- NOTE | 2020-04-08 06:57 | NUR ---
RN CLOSING NOTE: PATIENT REMAINS IN ROOM IN NO SIGNS OF RESPIRATORY DISTRESS. SAFETY MEASURES IMPLEMENTED, BED IN LOWEST POSITION, LOCKED, SIDE RAILS UP, CALL LIGHT WITHIN REACH. ALL NEEDS AND ORDERS ADDRESSED DURING THE SHIFT. IV ACCESS MAINTAINED INTACT, SECURED AND FLUSHING WELL. ALL DUE MEDS GIVEN ORDERED & SCHEDULED ; PATIENT TOLERATED WELL. PATIENT KEPT CLEAN AND COMFORTABLE WITHIN THE SHIFT. ENDORSED TO INCOMING SHIFT RN FOR CONTINUITY OF CARE.
[2020-04-08 09:00] LABS: ABG BASE EXCESS 1.8 mmol/L; ABG OXYGEN SATURATION 89.3 % (92.0-98.5); ABG PCO2 63.6 mmHg (35.0-45.0); ABG PO2 57.9 mmHg (75.0-100.0); AaDO2 445.7 mmHg; COHb 0.9 % (0.5-1.5); MetHb 0.1 % (0.0-1.5); O2Hb 88.4 % (94.0-97.0); PEEP,BG 5 cm H2O; SITE, ABG Right Radial; VT, ABG 450 mL
[2020-04-08] MEDS: APIXABAN 5 MG TABLET PO SCH ×2 (10:21→16:43)
[2020-04-08] MEDS: MEROPENEM 1 G in IV NS 0.9% 100 ML IV SCH ×2 (10:22→20:17)
[2020-04-08] MEDS: IV 1/2NS 1000 ML 1,000 ML IV PRN (15:40)
[2020-04-08] MEDS ORDERED: VANCOMYCIN 1.25 GM in IV D5W 250 ML IV SCH (17:00)
[2020-04-08] MEDS: JEVITY 1.2 CAL 1,000 ML BOTTLE GT PRN (17:49)
[2020-04-08] MEDS: ACETAMINOPHEN 325 MG TABLET PO PRN (20:13)
[2020-04-09] VITALS (85 sets, daily range): BP systolic 34–190; BP diastolic 20–120
[2020-04-09] MEDS: PROPOFOL 100 ML IV PRN ×10 (02:15→23:17)
[2020-04-09 04:56] LABS: BASOPHILS # (AUTO) 0.1 /CMM (0.0-0.2); BASOPHILS % (AUTO) 0.5 % (0.0-2.0); EOSINOPHILS % (AUTO) 5.1 % (0.0-6.0); HEMATOCRIT 38 % (39-51); HEMOGLOBIN 12.5 g/dL (13.5-17.5); LYMPHOCYTES # (AUTO) 1.3 /CMM (0.8-4.8); LYMPHOCYTES % (AUTO) 11.1 % (20.0-44.0); MEAN CORPUSCULAR HGB CONC 33 g/dl (31.0-36.0); MEAN CORPUSCULAR VOLUME 92 fL (80-96); MONOCYTES # (AUTO) 0.7 /CMM (0.1-1.30); MONOCYTES % (AUTO) 5.8 % (2.0-12.0); NEUTROPHILS # (AUTO) 9.3 /CMM (1.8-8.9); NEUTROPHILS % (AUTO) 77.5 % (43.0-81.0); PLATELET COUNT (AUTO) 175 /CMM (150-450)
[2020-04-09 05:02] LABS: CALCIUM, SERUM 8.8 mg/dL (8.5-10.1); CREATININE 0.4 mg/dL (0.6-1.3); MAGNESIUM 1.8 mg/dL (1.8-2.4); PHOSPHORUS 2.4 mg/dL (2.5-4.9); POTASSIUM 4.1 mmol/L (3.5-5.1)
[2020-04-09 06:12] LABS: ABG BASE EXCESS 6.2 mmol/L; ABG PCO2 81.5 mmHg (35.0-45.0); ABG PH 7.265 (7.350-7.450); ABG PO2 45.7 mmHg (75.0-100.0); AaDO2 585.8 mmHg; COHb 1.2 % (0.5-1.5); MetHb 0.2 % (0.0-1.5); O2Hb 78.9 % (94.0-97.0); PEEP,BG 5 cm H2O; SITE, ABG Right Radial
--- NOTE | 2020-04-09 06:13 | NUR ---
ABG DONE DUE TO LOW O2 SAT 84%. PT ON 100%, PEEP 5. NOTIFIED RAJ FISHER WITH THE RESULT.
--- NOTE | 2020-04-09 06:21 | NUR ---
PATIENT'S SATING 88%. ABG DONE MD BHATTI AT BED SIDE NEW ORDER RECEIVED TO GIVE MORPHINE X1 AND INCREASED RATE -30, AND PEEP OF 8. RT NOTIFIED AND MAKE THE CHANGES ORDERED. WILL CONT TO MONITOR.
--- NOTE | 2020-04-09 06:22 | NUR ---
VENT CHANGES PER DAVY. NOTIFIED RAJ FISHER. RATE 30 PEEP 8
[2020-04-09] MEDS ORDERED: MORPHINE SULFATE INJ 4 MG/ML DISP.SYRIN IV ONE (06:30)
--- NOTE | 2020-04-09 07:45 | NUR ---
ICU/RN PT IS INTUBATED ON THE VENT AC MODE,FIO2-100%,PEEP-8. SAT O2-97%.ON NEOSYNEPHRINE DRIP,SEDATED WITH DIPRIVAN AND FENTANYL.IV INFUSING ORDERED,GENERALIZED EDEMA PRESENT.F/C DRAINING WITH RUSTY URINE.
[2020-04-09] MEDS: PHENYLEPHRINE 100 MG in IV NS 0.9% 240 ML IV PRN ×2 (08:27→16:51)
--- NOTE | 2020-04-09 08:28 | NUR ---
vent changes below per dr. vargas: VT 500 Addendum: 04/09/20 at 0899 by PAOLA CHAMPION RT Amended: Links added.
[2020-04-09] MEDS: APIXABAN 5 MG TABLET PO SCH ×2 (08:35→16:36)
[2020-04-09] MEDS: MEROPENEM 1 G in IV NS 0.9% 100 ML IV SCH ×2 (08:37→21:03)
--- NOTE | 2020-04-09 09:00 | NUR ---
ICU/RN DUE MEDS ARE GIVEN ORDERED.PT IS NOT STABLE FOR SEDATION VACATION.ON PRESSORS,FIO2-100%,PEEP-10.AND ON FENTANYL DRIP AND MD JEREMY NOTIFIED.
[2020-04-09] MEDS: IV 1/2NS 1000 ML 1,000 ML IV PRN (09:52)
--- NOTE | 2020-04-09 11:40 | NUR ---
ICU/RN PT HR DECREASED ASYSTOLE ON MONITOR,CODE BLUE INITIATED.MEDS GIVEN PER PROTOCOL SEE CODE BLUE SHEET.
--- NOTE | 2020-04-09 11:55 | NUR ---
ICU/RN PT IS POST CODE BLUE PEA.FAMILY NOTIFIED.FAMILY WANTS EVERY THING TO BE DONE.PT A-FIB ON MONITOR.MD NOTIFIED.
[2020-04-09 12:21] LABS: ABG BASE EXCESS -6.5 mmol/L; ABG OXYGEN SATURATION 85.6 % (92.0-98.5); ABG PH 7.109 (7.350-7.450); ABG PO2 62.3 mmHg (75.0-100.0); AaDO2 570.7 mmHg; COHb 1.4 % (0.5-1.5); MetHb 0.3 % (0.0-1.5); O2Hb 84.1 % (94.0-97.0); PEEP,BG 8 cm H2O; SITE, ABG Right Femoral; VT, ABG 500 mL
--- NOTE | 2020-04-09 12:27 | NUR ---
vent changes below per dr. vargas: vt 550 ml Addendum: 04/09/20 at 1227 by PAOLA CHAMPION RT Amended: Links added.
--- NOTE | 2020-04-09 12:40 | NUR ---
ICU/RN DR MARTÍNEZ SEEN THE PT DID CARDIOVERSION.OPT IS SINUS TACHYCARDIA.ON PRESSORS.AND SEDATED.FIO2-100%.CONTINUE MONITORING.
[2020-04-09] MEDS: FENTANYL CITRAT IV 2,500 MCG in IV NS 0.9% 200 ML IV PRN (12:44)
[2020-04-09] MEDS: HYDROCORTISONE SOD SUCCINATE 100 MG/2 ML VIAL IV SCH ×2 (14:08→21:03)
[2020-04-09 16:06] LABS: ABG OXYGEN SATURATION 94.3 % (92.0-98.5); ABG PCO2 55.1 mmHg (35.0-45.0); ABG PH 7.364 (7.350-7.450); ABG PO2 69.8 mmHg (75.0-100.0); AaDO2 588.1 mmHg; COHb 0.8 % (0.5-1.5); MetHb 0.1 % (0.0-1.5); O2Hb 93.5 % (94.0-97.0); PEEP,BG 8 cm H2O; SITE, ABG Right Radial; VT, ABG 550 mL
[2020-04-09] MEDS: NOREPINEPHRINE 32 MG in IV NS 0.9% 218 ML IV PRN ×2 (17:30→18:38)
[2020-04-09] MEDS ORDERED: NEUTRA PHOS 1 POWD.PACKET PO ONE (17:30)
--- NOTE | 2020-04-09 18:00 | NUR ---
ICU/RN PM CARE PROVIDED.DUE MEDS ARE GIVEN ORDERED.CONTINUE TO MONITOR.
[2020-04-09] MEDS: JEVITY 1.2 CAL 1,000 ML BOTTLE GT PRN (18:14)
[2020-04-09] MEDS: ACETAMINOPHEN 325 MG TABLET PO PRN (18:14)
[2020-04-10] VITALS (64 sets, daily range): BP systolic 95–155; BP diastolic 50–92
[2020-04-10] MEDS: PHENYLEPHRINE 100 MG in IV NS 0.9% 240 ML IV PRN ×3 (00:28→17:23)
[2020-04-10] MEDS: IV 1/2NS 1000 ML 1,000 ML IV PRN (00:49)
[2020-04-10] MEDS: PROPOFOL 100 ML IV PRN ×7 (01:35→22:05)
[2020-04-10] MEDS: FENTANYL CITRAT IV 2,500 MCG in IV NS 0.9% 200 ML IV PRN ×2 (03:31→17:26)
[2020-04-10 04:21] LABS: BASOPHILS # (AUTO) 0.1 /CMM (0.0-0.2); BASOPHILS % (AUTO) 0.3 % (0.0-2.0); EOSINOPHILS % (AUTO) 0.1 % (0.0-6.0); HEMATOCRIT 40 % (39-51); HEMOGLOBIN 13.1 g/dL (13.5-17.5); LYMPHOCYTES # (AUTO) 0.9 /CMM (0.8-4.8); LYMPHOCYTES % (AUTO) 4.2 % (20.0-44.0); MEAN CORPUSCULAR HGB CONC 33 g/dl (31.0-36.0); MEAN CORPUSCULAR VOLUME 91 fL (80-96); MONOCYTES # (AUTO) 0.6 /CMM (0.1-1.30); MONOCYTES % (AUTO) 2.6 % (2.0-12.0); NEUTROPHILS # (AUTO) 20.6 /CMM (1.8-8.9); NEUTROPHILS % (AUTO) 92.8 % (43.0-81.0); PLATELET COUNT (AUTO) 200 /CMM (150-450); RED BLOOD CELL COUNT(AUTO) 4.38 MIL/uL (4.5-6.0); WHITE BLOOD COUNT (AUTO) 22.2 K/uL (4.3-11.0)
[2020-04-10 04:32] LABS: CALCIUM, SERUM 8.2 mg/dL (8.5-10.1); CREATININE 0.9 mg/dL (0.6-1.3); PHOSPHORUS 2.1 mg/dL (2.5-4.9); POTASSIUM 3.7 mmol/L (3.5-5.1)
[2020-04-10] MEDS: HYDROCORTISONE SOD SUCCINATE 100 MG/2 ML VIAL IV SCH ×3 (05:28→20:51)
[2020-04-10 05:48] LABS: ABG BASE EXCESS 5.7 mmol/L; ABG OXYGEN SATURATION 94.6 % (92.0-98.5); ABG PCO2 52.7 mmHg (35.0-45.0); ABG PH 7.399 (7.350-7.450); ABG PO2 72.9 mmHg (75.0-100.0); AaDO2 587.4 mmHg; COHb 0.1 % (0.5-1.5); MetHb 0.1 % (0.0-1.5); O2Hb 94.4 % (94.0-97.0); PEEP,BG 5 cm H2O; SITE, ABG Right Radial; VENT MODE, BG AC 30 550 100% +8; VT, ABG 550 mL
[2020-04-10 07:44] LABS: ABG BASE EXCESS 5.5 mmol/L; ABG OXYGEN SATURATION 90.9 % (92.0-98.5); ABG PCO2 52.2 mmHg (35.0-45.0); AaDO2 599.8 mmHg; COHb 0.5 % (0.5-1.5); MetHb 0.2 % (0.0-1.5); O2Hb 90.3 % (94.0-97.0); SITE, ABG Right Radial
[2020-04-10] MEDS ORDERED: POTASSIUM PHOSPHATE MM 15 MMOL in IV NS 0.9% 250 ML IV SCH (08:00)
[2020-04-10] MEDS: MEROPENEM 1 G in IV NS 0.9% 100 ML IV SCH ×2 (10:13→20:46)
[2020-04-10] MEDS: APIXABAN 5 MG TABLET PO SCH ×2 (10:14→17:25)
[2020-04-10] MEDS ORDERED: EPINEPHRINE (1:10,000) SYRINGE 1 MG/10 ML DISP.SYRIN ONE (10:52)
[2020-04-10] MEDS ORDERED: SODIUM BICARBONATE SYR 50 MEQ/50 ML DISP.SYRIN ONE (10:52)
[2020-04-10] MEDS: JEVITY 1.2 CAL 1,000 ML BOTTLE GT PRN (17:28)
[2020-04-11] VITALS (83 sets, daily range): BP systolic 97–136; BP diastolic 50–67
[2020-04-11] MEDS: PROPOFOL 100 ML IV PRN ×7 (00:31→23:30)
[2020-04-11 04:35] LABS: BASOPHILS % (AUTO) 0.1 % (0.0-2.0); EOSINOPHILS % (AUTO) 0.2 % (0.0-6.0); HEMATOCRIT 33 % (39-51); HEMOGLOBIN 10.9 g/dL (13.5-17.5); LYMPHOCYTES # (AUTO) 0.6 /CMM (0.8-4.8); LYMPHOCYTES % (AUTO) 3.2 % (20.0-44.0); MEAN CORPUSCULAR HGB CONC 33 g/dl (31.0-36.0); MEAN CORPUSCULAR VOLUME 92 fL (80-96); MONOCYTES # (AUTO) 0.8 /CMM (0.1-1.30); MONOCYTES % (AUTO) 3.7 % (2.0-12.0); NEUTROPHILS # (AUTO) 18.8 /CMM (1.8-8.9); NEUTROPHILS % (AUTO) 92.8 % (43.0-81.0); PLATELET COUNT (AUTO) 173 /CMM (150-450); WHITE BLOOD COUNT (AUTO) 20.3 K/uL (4.3-11.0)
[2020-04-11 04:46] LABS: CREATININE 0.7 mg/dL (0.6-1.3); MAGNESIUM 1.9 mg/dL (1.8-2.4); PHOSPHORUS 2.7 mg/dL (2.5-4.9)
[2020-04-11 05:31] LABS: ABG BASE EXCESS 5.3 mmol/L; ABG OXYGEN SATURATION 96.6 % (92.0-98.5); ABG PCO2 57.5 mmHg (35.0-45.0); ABG PH 7.363 (7.350-7.450); ABG PO2 91.8 mmHg (75.0-100.0); AaDO2 563.7 mmHg; COHb 0.3 % (0.5-1.5); MetHb 0.3 % (0.0-1.5); PEEP,BG 8 cm H2O; SITE, ABG Right Radial; VENT MODE, BG AC 30 500 100% +8; VT, ABG 500 mL
[2020-04-11] MEDS: HYDROCORTISONE SOD SUCCINATE 100 MG/2 ML VIAL IV SCH ×3 (05:33→20:51)
--- NOTE | 2020-04-11 07:00 | NUR ---
RN NOTES PATIENT REMAINED ORALLY INTUBATED. ON AC MODE 28 TV 500 FIO2 80% PEEP 8 TOLERATED WELL. SATURATION 98%. AFEBRILE. PATIENT IS SEDATED WITH DIPRIVAN AND FENTANYL. TACHYPNEA PRESENT RESP ON 30'S. SR ON TELE MONITOR. OGT INTACT AND PATENT WITH JEVITY 1.2 VIA OGT PATENCY CHECKED NO RESIDUAL. IV SITE ON SULLY PICC LINE AND RAC WITH DIPRIVAN, ENDY, FENTANYL TITRATED ORDERED. DYER CATH DRAINED WITH DARKISH BROWN COLOR URINE WITH GOOD URINE OUTPUT. KEPT PT CLEAN AND DRY. TURNED AND REPOSITIONED MUCH POSSIBLE AND PT COMFORT. ISOLATION PRECAUTION ALWAYS MET AND STRICTLY OBSERVED DUE TO COVID PNA. ENDORSED CONTINUITY OF CARE TO AM NURSE.
[2020-04-11] MEDS: MEROPENEM 1 G in IV NS 0.9% 100 ML IV SCH ×2 (08:02→20:51)
[2020-04-11] MEDS: APIXABAN 5 MG TABLET PO SCH ×2 (08:47→17:14)
[2020-04-11] MEDS: FENTANYL CITRAT IV 2,500 MCG in IV NS 0.9% 200 ML IV PRN ×2 (08:48→23:47)
[2020-04-11] MEDS: JEVITY 1.2 CAL 1,000 ML BOTTLE GT PRN (15:28)
[2020-04-12] VITALS (80 sets, daily range): BP systolic 107–199; BP diastolic 57–115
[2020-04-12] MEDS: PROPOFOL 100 ML IV PRN ×6 (02:49→21:53)
[2020-04-12 04:50] LABS: BASOPHILS % (AUTO) 0.3 % (0.0-2.0); EOSINOPHILS % (AUTO) 0.2 % (0.0-6.0); HEMATOCRIT 34 % (39-51); HEMOGLOBIN 11.2 g/dL (13.5-17.5); LYMPHOCYTES # (AUTO) 0.8 /CMM (0.8-4.8); LYMPHOCYTES % (AUTO) 4.5 % (20.0-44.0); MEAN CORPUSCULAR HGB CONC 33 g/dl (31.0-36.0); MEAN CORPUSCULAR VOLUME 92 fL (80-96); MONOCYTES # (AUTO) 0.8 /CMM (0.1-1.30); MONOCYTES % (AUTO) 4.4 % (2.0-12.0); NEUTROPHILS # (AUTO) 15.7 /CMM (1.8-8.9); NEUTROPHILS % (AUTO) 90.6 % (43.0-81.0); PLATELET COUNT (AUTO) 177 /CMM (150-450); RED BLOOD CELL COUNT(AUTO) 3.72 MIL/uL (4.5-6.0); WHITE BLOOD COUNT (AUTO) 17.3 K/uL (4.3-11.0)
[2020-04-12 05:04] LABS: CALCIUM, SERUM 8.7 mg/dL (8.5-10.1); CREATININE 0.6 mg/dL (0.6-1.3); MAGNESIUM 2.6 mg/dL (1.8-2.4); PHOSPHORUS 2.3 mg/dL (2.5-4.9)
[2020-04-12] MEDS: HYDROCORTISONE SOD SUCCINATE 100 MG/2 ML VIAL IV SCH ×2 (05:15→21:01)
--- NOTE | 2020-04-12 07:00 | NUR ---
rn notes RECEIVED PT BEDSIDE MONITOR SHOWS SR-57. EET VENT SETTING TOLERATING WELL, INFUSING DIPRIVAN 50 MCG/KG/HR, AND FENTANYL 3MCG ON RIGHT PICC LINE, RUNNING JAVITY 1.2 @40CC/HR INTACT RESIDUAL, AND PLACEMENT CHECKED. KEEP HOB ELEVATED FOR ASPIRATION PRECAUTION. DYER CATH DRAINING GRAVITY. BED IN LOWEST POSITION AND LOCKED. BED ALARM ON. SIDE RAILS UP X2. ASSIST TURN AND REPOSTION Q 2 HR. CALL LIGHT NEAR TO REACH. WILL MONITORING.
--- NOTE | 2020-04-12 07:38 | NUR ---
RN NOTES 0045 AM - NEOSYNEPHRINE ENDED BP 132/68 MMHG GOAL IS TO KEEP SBP >90 MMHG. 0730 AM - PATIENT IS ORALLY INTUBATED WITH ETT 7.5 AND 25 CM AT LIP LINE WITH VENT SETTING AC 30 TV 500 FIO2 70% PEEP 10 TOLERATED WELL. SATURATION BETWEEN 95 -98%. AFEBRILE. SEDATED WITH DIPRIVAN AND FENTANYL TITRATED ORDERED. SB/ SR ON TELE MONITOR. OGT INTACT AND PATENT WITH JEVITY 1.2 VIA OGT PATENCY CHECKED NO RESIDUAL. IV SITE ON SULLY PICC LINE AND RAC ALL INTACT AND PATENT DYER CATH DRAINED WITH DARKISH BROWN COLOR URINE WITH GOOD URINE OUTPUT. KEPT PT CLEAN AND DRY. TURNED AND REPOSITIONED PT COMFORTABLE. ISOLATION PRECAUTION STRICTLY OBSERVED DUE TO COVID PNA. ENDORSED CONTINUITY OF CARE TO AM NURSE.
[2020-04-12 08:00] LABS: ABG BASE EXCESS 5.2 mmol/L; ABG OXYGEN SATURATION 88.1 % (92.0-98.5); ABG PCO2 53.5 mmHg (35.0-45.0); ABG PH 7.386 (7.350-7.450); ABG PO2 55.5 mmHg (75.0-100.0); AaDO2 386.1 mmHg; COHb 0.8 % (0.5-1.5); MetHb 0.3 % (0.0-1.5); O2Hb 87.1 % (94.0-97.0); PEEP,BG 10 cm H2O; SITE, ABG Right Radial; VT, ABG 500 mL
[2020-04-12] MEDS: NEUTRA PHOS 1 POWD.PACKET PO SCH ×2 (08:29→15:30)
[2020-04-12] MEDS: MEROPENEM 1 G in IV NS 0.9% 100 ML IV SCH ×2 (08:29→21:03)
[2020-04-12] MEDS: APIXABAN 5 MG TABLET PO SCH ×2 (08:32→17:45)
[2020-04-12] MEDS: FENTANYL CITRAT IV 2,500 MCG in IV NS 0.9% 200 ML IV PRN (15:24)
[2020-04-12] MEDS: JEVITY 1.2 CAL 1,000 ML BOTTLE GT PRN (17:45)
[2020-04-12] MEDS: hydrALAZINE HCL 25 MG TABLET NG PRN (19:09)
--- NOTE | 2020-04-12 19:09 | NUR ---
RN NOTES ADMINISTERED APRESOLINE 25 MG PRN VIA NG TUBE BP 185/81, P-62 PER MD ORDER, AM CARE DONE, SUCTION, ADMINISTERED SCHEDULED MEDICATION. INFUSING JEVITY 40 CC/HR INTACT, ALSO DIPRIVAN 50MCG/KG/HR INTACT, TITRATED PER PROTOCOL, EDEMA BOTH UPPER ARMS, AND BLE, ASSIST TURN AND REPOSTION Q 2 HR DYER DRAINING DARK YELLOW OUTPUT. CALL LIGHT WITHIN TO REACH, ENDORSED ONCOMING NURSE FOLLOW PLAN OF CARE.
--- NOTE | 2020-04-12 21:45 | NUR ---
RN NOTES INFORMED DR. CROWDER REGARDING SBP REMAINED 170 - 180'S LAST HYDRALAZINE GIVEN AT 1900 FOR SBP PARAMETER >150 MMHG INEFFECTIVE. WITH NEW ORDER TO GIVE VASOTEC 2.5 MG IV Q6H PRN FOR ABOVE 160 MMHG NOTED AND CARRIED OUT ORDER.
--- NOTE | 2020-04-12 21:45 | NUR ---
RN NOTES PATIENT SBP AT 170'S - 180' SINFORMED MD WITH NEW ORDER VASOTEC.
[2020-04-12] MEDS: ENALAPRILAT DIHYD. (2.5MG/2ML) 1.25 MG/ML VIAL IV PRN (22:37)
[2020-04-13] VITALS (41 sets, daily range): BP systolic 137–191; BP diastolic 60–95
--- NOTE | 2020-04-13 | NUR ---
RN NOTES MD MADE AWARE THAT THE PATIENT BP REMAINED O 180'S EVEN AFTER GIVING HYDRALAZINE AND VASOTEC, WITH NEW ORDER OF NORVASC NOTED AND CARRIED OUT ORDER.
[2020-04-13] MEDS: PROPOFOL 100 ML IV PRN ×6 (00:38→21:29)
[2020-04-13] MEDS: AMLODIPINE BESYLATE 5 MG TABLET NG SCH ×3 (01:10→22:10)
[2020-04-13] MEDS: hydrALAZINE HCL 25 MG TABLET NG PRN ×2 (01:11→08:42)
[2020-04-13] MEDS: ENALAPRILAT DIHYD. (2.5MG/2ML) 1.25 MG/ML VIAL IV PRN (04:37)
[2020-04-13 05:15] LABS: BASOPHILS % (AUTO) 0.3 % (0.0-2.0); EOSINOPHILS % (AUTO) 0.9 % (0.0-6.0); HEMATOCRIT 37 % (39-51); HEMOGLOBIN 12.4 g/dL (13.5-17.5); LYMPHOCYTES # (AUTO) 1.4 /CMM (0.8-4.8); LYMPHOCYTES % (AUTO) 7.5 % (20.0-44.0); MEAN CORPUSCULAR HGB CONC 33 g/dl (31.0-36.0); MEAN CORPUSCULAR VOLUME 92 fL (80-96); MONOCYTES # (AUTO) 1.2 /CMM (0.1-1.30); MONOCYTES % (AUTO) 6.6 % (2.0-12.0); NEUTROPHILS # (AUTO) 15.6 /CMM (1.8-8.9); NEUTROPHILS % (AUTO) 84.7 % (43.0-81.0); PLATELET COUNT (AUTO) 194 /CMM (150-450); RED BLOOD CELL COUNT(AUTO) 4.06 MIL/uL (4.5-6.0); WHITE BLOOD COUNT (AUTO) 18.4 K/uL (4.3-11.0)
[2020-04-13] MEDS: FENTANYL CITRAT IV 2,500 MCG in IV NS 0.9% 200 ML IV PRN ×2 (05:45→17:38)
[2020-04-13 06:14] LABS: CALCIUM, SERUM 8.5 mg/dL (8.5-10.1); CREATININE 0.6 mg/dL (0.6-1.3); POTASSIUM 3.9 mmol/L (3.5-5.1)
--- NOTE | 2020-04-13 07:00 | NUR ---
RN NOTES INFORMED MD THAT PATIENT BP STILL ON 170-180'S DESPITE OF VASOTEC, HYDRALAZINE AND NORVASC. WITH NEW ORDER OF COREG NOTED AND CARRIED OUT ORDERS.
--- NOTE | 2020-04-13 08:05 | NUR ---
RN NOTES ATTEMPTED TO DECREASE PROPOFOL SEDATION TO ASSESS NEUROLOGICAL STATUS PER DR ALEXIS'S INSTRUCTIONS, BUT NOTED PT TO DISPLAY MODERATE AGITATION. MD AWARE. WILL INCREASE BACK PROPOFOL PER PROTOCOL.
[2020-04-13] MEDS ORDERED: FUROSEMIDE 20 MG/2 ML VIAL IV ONE (08:30)
[2020-04-13] MEDS: HYDROCORTISONE SOD SUCCINATE 100 MG/2 ML VIAL IV SCH (08:42)
[2020-04-13] MEDS: APIXABAN 5 MG TABLET PO SCH ×2 (08:45→17:52)
[2020-04-13] MEDS: MEROPENEM 1 G in IV NS 0.9% 100 ML IV SCH ×2 (08:51→22:07)
[2020-04-13] MEDS: CARVEDILOL 6.25 MG TABLET NG SCH ×2 (08:56→22:09)
--- NOTE | 2020-04-13 10:19 | NUR ---
WOUND CARE CONSULT: REVIEWED CHART, NURSING DOCUMENTATION AND SPOKE WITH RN. PER RN REPORT THERE IS BLANCHABLE REDNESS TO HEELS. HEELS FLOATED. PT IS ON FIRST STEP CIRRUS LOW AIRLOSS MATTRESS. RECOMMENDATIONS MADE FOR SKIN PROTECTION. DISCUSSED WITH NURSING STAFF. MD IN AGREEMENT WITH PLAN OF CARE.
[2020-04-13] MEDS ORDERED: Z GUARD REMEDY 2 OZ OINT TP PRN (10:30)
[2020-04-13] MEDS: NITROGLYCERIN PACKET 1 GM PACKET TOP SCH ×2 (12:52→17:42)
[2020-04-13] MEDS: JEVITY 1.2 CAL 1,000 ML BOTTLE GT PRN (17:53)
[2020-04-14] VITALS (42 sets, daily range): BP systolic 72–188; BP diastolic 31–90
[2020-04-14] MEDS: PROPOFOL 100 ML IV PRN ×10 (00:11→22:45)
[2020-04-14] MEDS: NITROGLYCERIN PACKET 1 GM PACKET TOP SCH ×2 (00:18→05:46)
[2020-04-14] MEDS: FENTANYL CITRAT IV 2,500 MCG in IV NS 0.9% 200 ML IV PRN ×2 (02:54→16:37)
[2020-04-14] MEDS: hydrALAZINE HCL 25 MG TABLET NG PRN (04:45)
[2020-04-14 05:22] LABS: HEMATOCRIT 37 % (39-51); HEMOGLOBIN 12.3 g/dL (13.5-17.5); LYMPHOCYTES # (AUTO) 2.1 /CMM (0.8-4.8); LYMPHOCYTES % (AUTO) 14.4 % (20.0-44.0); MEAN CORPUSCULAR HGB CONC 33 g/dl (31.0-36.0); MEAN CORPUSCULAR VOLUME 92 fL (80-96); MONOCYTES # (AUTO) 2.6 /CMM (0.1-1.30); MONOCYTES % (AUTO) 17.8 % (2.0-12.0); NEUTROPHILS # (AUTO) 9.3 /CMM (1.8-8.9); NEUTROPHILS % (AUTO) 63.8 % (43.0-81.0); PLATELET COUNT (AUTO) 194 /CMM (150-450); RED BLOOD CELL COUNT(AUTO) 4.07 MIL/uL (4.5-6.0); WHITE BLOOD COUNT (AUTO) 14.5 K/uL (4.3-11.0)
[2020-04-14 05:49] LABS: CALCIUM, SERUM 8.5 mg/dL (8.5-10.1); CREATININE 0.5 mg/dL (0.6-1.3); POTASSIUM 2.9 mmol/L (3.5-5.1)
[2020-04-14 05:53] LABS: ABG BASE EXCESS 8.9 mmol/L; ABG OXYGEN SATURATION 91.8 % (92.0-98.5); ABG PCO2 61.2 mmHg (35.0-45.0); ABG PH 7.387 (7.350-7.450); ABG PO2 64.7 mmHg (75.0-100.0); COHb 1.2 % (0.5-1.5); MetHb 0.2 % (0.0-1.5); O2Hb 90.5 % (94.0-97.0); SITE, ABG Right Radial; VENT MODE, BG AC 24 500 50% +10
--- NOTE | 2020-04-14 06:30 | NUR ---
PROPERTY MANAGEMENT SPECIALIST: NO SIGNIFICANT ULYSSES DURING THE SHIFT. STILL SEDATED ON FENTANYL DRIP AT 3MCG/KG/HR AND DIPRIVAN DRIP AT 60MCG/KG/MIN. GIVEN APRESOLINE PRN FOR ELEVATED SBP. SAFETY PRECAUTION NOTED AT ALL TIMES.
--- NOTE | 2020-04-14 08:00 | NUR ---
BOTTOM TURNER NOTES PATIENT REMAINED ORALLY INTUBATED. ON AC MODE 24 TV 500 FIO2 50 % PEEP 10 TOLERATED WELL. SATURATION 95%. AFEBRILE. PATIENT IS SEDATED WITH DIPRIVAN @60MCG/KG/MIN AND FENTANYL @3MCG/KG/MIN. SR 85 ON TELE MONITOR. OGT INTACT AND PATENT WITH JEVITY 1.2 VIA OGT PATENCY CHECKED NO RESIDUAL. IV SITE ON SULLY PICC LINE AND RAC WITH DIPRIVAN, ENDY, FENTANYL TITRATED ORDERED. DYER CATH DRAINED WITH YELLOW GREEN COLOR URINE WITH GOOD URINE OUTPUT. KEPT PT CLEAN AND DRY. TURNED AND REPOSITIONED MUCH POSSIBLE AND PT COMFORT. ISOLATION PRECAUTION ALWAYS MET AND STRICTLY OBSERVED DUE TO COVID PNA.
[2020-04-14] MEDS ORDERED: NITROGLYCERIN PACKET 1 GM PACKET TOP SCH (09:00)
[2020-04-14] MEDS: MEROPENEM 1 G in IV NS 0.9% 100 ML IV SCH ×2 (09:29→20:09)
[2020-04-14] MEDS: AMLODIPINE BESYLATE 5 MG TABLET NG SCH ×2 (09:30→21:00)
[2020-04-14] MEDS: HYDROCORTISONE SOD SUCCINATE 100 MG/2 ML VIAL IV SCH (09:30)
[2020-04-14] MEDS: CARVEDILOL 6.25 MG TABLET NG SCH ×2 (09:30→21:00)
[2020-04-14] MEDS: POTASSIUM CHLORIDE 20 MEQ POWDER PACKET NG SCH ×3 (09:32→11:40)
[2020-04-14] MEDS: hydrALAZINE HCL 50 MG TABLET PO SCH ×2 (09:33→12:21)
[2020-04-14] MEDS: APIXABAN 5 MG TABLET PO SCH ×2 (09:34→16:10)
[2020-04-14] MEDS: ENALAPRILAT DIHYD. (2.5MG/2ML) 1.25 MG/ML VIAL IV PRN (12:00)
[2020-04-14] MEDS ORDERED: NITROGLYCERIN 30 GM TUBE TOP SCH ×2 (12:00→17:00)
[2020-04-14 12:05] LABS: BAND % (MANUAL) 2 % (0.0-5.0); EOSINOPHILS % (MANUAL) 7 % (0-4); LYMPHOCYTES % (MANUAL) 12 % (16-48); MONOCYTES % (MANUAL) 8 % (0-11.0); MYELOCYTES % 2 % (0-0); NEUTROPHILS % (MANUAL) 69 (42-76)
--- NOTE | 2020-04-14 13:13 | NUR ---
CROSSING GUARD NOTES NOTIFIED DR MARTÍNEZ REGARDING PT BP OF 176/84 , SCHEDULED HYDRALAZINE 50MG @ 1300 GIVEN WITH PRN VASOTEC 2.5MG IVP GIVEN , PT SEDATED WITH DIPRIVAN @ 100MCG/KG/MIN , FEBTANYL IS OFF , NO DISTRESS NOTED , PER MD INCREASE HYDRALAZINE 100MG TID FIRST DOSE NOW , ORDER CARRIED OUT
[2020-04-14] MEDS ORDERED: hydrALAZINE HCL 25 MG TABLET PO ONE (14:00)
--- NOTE | 2020-04-14 14:48 | NUR ---
PROFILING MACHINE SET UP OPERATOR NOTES SEEN AND EVALUATED BY DR ALEXIS , NOTIFIED ELEVATED BP PRN AND MEDS ADJUSTED BY DR MARTÍNEZ, PT ON DIPRIVAN @ 100MCG//KG/MIN , ST 105-110 , RR 30CPM , PER MD RESUME FENTANYL , ORDER CARRIED OUT
[2020-04-14] MEDS: ACETAMINOPHEN 325 MG TABLET PO PRN ×2 (15:44→21:29)
[2020-04-14] MEDS ORDERED: hydrALAZINE HCL 50 MG TABLET PO SCH (17:00)
[2020-04-14] MEDS: PHENYLEPHRINE 100 MG in IV NS 0.9% 240 ML IV PRN (19:04)
--- NOTE | 2020-04-14 19:19 | NUR ---
SNATH HANDLE ASSEMBLER NOTES PATIENT REMAINED ORALLY INTUBATED. ON AC MODE 24 TV 500 FIO2 50 % PEEP 10 TOLERATED WELL. SATURATION 97%. AFEBRILE. PATIENT IS SEDATED WITH DIPRIVAN @ 60MCG/KG/MIN AND FENTANYL @2MCG/KG/MIN. SR 95 ON TELE MONITOR. OGT INTACT AND PATENT WITH JEVITY 1.2 VIA OGT PATENCY CHECKED NO RESIDUAL. IV SITE ON SULLY PICC LINE AND RAC WITH DIPRIVAN, ENDY @0.5MCG/KG/MIN FENTANYL @ 2MCG/KG/MIN TITRATED ORDERED. DYER CATH DRAINED WITH YELLOW GREEN COLOR URINE WITH GOOD URINE OUTPUT. KEPT PT CLEAN AND DRY. TURNED AND REPOSITIONED MUCH POSSIBLE AND PT COMFORT. ISOLATION PRECAUTION ALWAYS MET AND STRICTLY OBSERVED DUE TO COVID PNA. REPORT GIVEN TO MARILYN FOR CONTINUITY OF CARE
--- NOTE | 2020-04-14 19:30 | NUR ---
RN NOTE RECEIVED PT ORALLY INTUBATED/SEDATED. PT TOLERATING VENT SETTING WITH O2 SAT OF 99 %. NO SIGNS OF DISTRESS. PT SR HR 77. PT JUST STARTED WITH ENDY AT 0.5MCG/KG/MIN. ON PROPOFOL 60MCG/KG/MIN AND FENTANYL 2MCG. ALL INFUSING WELL ON SULLY PICC LINE. NO SIGNS OF INFILTRATION. OGT IN PLACE. WITH FEEDING OF JEVITY 1.2 RUNNING AT 40ML/HR. KEPT HOB ELEVATED. DYER CATH IN PLACE. WITH YELLOW URINE OUTPUT. BED LOCKED IN LOWEST POSITION. SIDE RAILS UP X3. WILL CONTINUE TO MONITOR.
--- NOTE | 2020-04-14 21:30 | NUR ---
RN NOTE PT NOTED WITH ELEVATED TEMP. 101. TYLENOL 650MG GIVEN VIA OGT. WILL CONTINUE TO MONITOR.
--- NOTE | 2020-04-14 21:30 | NUR ---
RN NOTES HELD OGT FEEDING. WITH RESIDUALS OF 100CC. NO SIGNS OF ASPIRATION NOTED. WILL CONTINUE TO MONITOR.
[2020-04-15] VITALS (68 sets, daily range): BP systolic 79–183; BP diastolic 32–89
--- NOTE | 2020-04-15 | NUR ---
RN NOTE STILL NOTED WITH OGT RESIDUALS OF 250CC. FEEDING STILL ON HOLD.
[2020-04-15] MEDS: PROPOFOL 100 ML IV PRN ×7 (02:03→22:17)
--- NOTE | 2020-04-15 04:00 | NUR ---
RN NOTE PT BODY TEMP AT 98.5. FEEDING STILL ON HOLD DUE TO RESIDUALS. WILL CONTINUE TO MONITOR.
[2020-04-15] MEDS: FENTANYL CITRAT IV 2,500 MCG in IV NS 0.9% 200 ML IV PRN ×2 (06:20→21:12)
[2020-04-15 06:30] LABS: CALCIUM, SERUM 9.1 mg/dL (8.5-10.1); CREATININE 0.6 mg/dL (0.6-1.3); PHOSPHORUS 2.1 mg/dL (2.5-4.9); POTASSIUM 3.1 mmol/L (3.5-5.1)
[2020-04-15 06:32] LABS: BASOPHILS % (AUTO) 0.4 % (0.0-2.0); EOSINOPHILS % (AUTO) 5.4 % (0.0-6.0); HEMATOCRIT 35 % (39-51); HEMOGLOBIN 11.4 g/dL (13.5-17.5); LYMPHOCYTES % (AUTO) 14.2 % (20.0-44.0); MEAN CORPUSCULAR HGB CONC 33 g/dl (31.0-36.0); MEAN CORPUSCULAR VOLUME 93 fL (80-96); MONOCYTES # (AUTO) 1.1 /CMM (0.1-1.30); MONOCYTES % (AUTO) 8.2 % (2.0-12.0); NEUTROPHILS % (AUTO) 71.8 % (43.0-81.0); PLATELET COUNT (AUTO) 230 /CMM (150-450); RED BLOOD CELL COUNT(AUTO) 3.72 MIL/uL (4.5-6.0)
--- NOTE | 2020-04-15 07:20 | NUR ---
RN NOTE PATIENT REMAINES ORALLY INTUBATED. VENT SETTING TOLERATING WELL AC 24 TV 500 FIO2 50 % PEEP 10. SATURATION 97%. NO SIGNS OF DISTRESS NOTED. PATIENT REMAIN SEDATED WITH DIPRIVAN @ 60MCG/KG/MIN AND FENTANYL @2MCG/KG/MIN. PT ON NEOSYNEPHRINE AT 1MCG/KG/MIN. ALL INFUSING WELL. PT WITH IV SITE ON SULLY PICC LINE AND RAC PATENT AND INTACT. OGT INTACT WITH STILL RESIDUALS, FEEDING KEPT ON HOLD. DYER CATH DRAINED WITH YELLOW COLOR URINE. KEPT PT CLEAN AND DRY AND COMFORTABLE. PT WITH 3.1 WBC AND NA 160. ENDORSED TO MORNING SHIFT NURSE. ISOLATION PRECAUTION MAINTAINED.
--- NOTE | 2020-04-15 08:00 | NUR ---
RN NOTE PATIENT REMAINES ORALLY INTUBATED. VENT SETTING TOLERATING WELL AC 24 TV 500 FIO2 50 % PEEP 10. SATURATION 97%. NO SIGNS OF DISTRESS NOTED. PATIENT REMAIN SEDATED WITH DIPRIVAN @ 60MCG/KG/MIN AND FENTANYL @2MCG/KG/MIN. PT ON NEOSYNEPHRINE AT 1MCG/KG/MIN. ALL INFUSING WELL. PT WITH IV SITE ON SULLY PICC LINE AND RAC PATENT AND INTACT. OGT INTACT WITH STILL RESIDUALS WITH 400 ML , FEEDING KEPT ON HOLD. DYER CATH TO GRAVITY WITH YELLOW COLOR URINE. KEPT PT CLEAN AND DRY AND COMFORTABLE. ISOLATION PRECAUTION MAINTAINED. PER DR ALEXIS OK TO ORDER REGLAN , HOLD PROPOFOL SEDATION VOCATION AT THOS TIME PER DR ALEXIS WILL MONITOR
[2020-04-15 08:25] LABS: ABG BASE EXCESS 10.1 mmol/L; ABG OXYGEN SATURATION 86.5 % (92.0-98.5); ABG PCO2 48.8 mmHg (35.0-45.0); ABG PH 7.475 (7.350-7.450); ABG PO2 50.5 mmHg (75.0-100.0); AaDO2 251.1 mmHg; COHb 0.9 % (0.5-1.5); MetHb 0.1 % (0.0-1.5); O2Hb 85.6 % (94.0-97.0); PEEP,BG 10 cm H2O; SITE, ABG Right Radial; VT, ABG 500 mL
[2020-04-15] MEDS: APIXABAN 5 MG TABLET PO SCH ×2 (08:46→16:23)
--- NOTE | 2020-04-15 09:03 | NUR ---
vent changes below per dr. vargas: vt 450 ml fio2 60% Addendum: 04/15/20 at 0903 by PAOLA CHAMPION RT Amended: Links added.
[2020-04-15] MEDS: POTASSIUM PHOSPHATE MM 7.5 MMOL in IV NS 0.9% 100 ML IV SCH ×2 (09:24→11:18)
[2020-04-15] MEDS: MEROPENEM 1 G in IV NS 0.9% 100 ML IV SCH ×2 (09:25→21:02)
[2020-04-15] MEDS: HYDROCORTISONE SOD SUCCINATE 100 MG/2 ML VIAL IV SCH (09:28)
[2020-04-15 10:17] LABS: BAND % (MANUAL) 1 % (0.0-5.0); EOSINOPHILS % (MANUAL) 6 % (0-4); LYMPHOCYTES % (MANUAL) 15 % (16-48); MONOCYTES % (MANUAL) 10 % (0-11.0); MYELOCYTES % 8 % (0-0); NEUTROPHILS % (MANUAL) 60 (42-76)
--- NOTE | 2020-04-15 11:00 | NUR ---
PIPELINE EXECUTIVE NOTE DR PERKINS NOTIFIED THAT URINE OUT PUT MORE THEN 2000ML STATED THAT ORDERED D5W WILL MONITOR
[2020-04-15] MEDS: METOCLOPRAMIDE HCL 10 MG/2 ML VIAL IV SCH ×2 (11:06→17:39)
[2020-04-15] MEDS: PHENYLEPHRINE 100 MG in IV NS 0.9% 240 ML IV PRN (11:21)
[2020-04-15] MEDS: IV D5W 1,000 ML IV PRN ×2 (11:37→17:36)
--- NOTE | 2020-04-15 15:00 | NUR ---
multicut line operator note residual 300 ml at this time hold og tube feeding , dr King aware that na 160 k 3.1 with new order d5w at 150 ml and k phos drip ,keep versed and fentanyl drip ,
--- NOTE | 2020-04-15 18:17 | NUR ---
DICTAPHONE TYPIST NOTE ALL NEEDS ATTENDED ON PROPOFOL. FENTANYL AND ENDY DRIP ORDERED ON IVF ORDERED RESIDUAL STILL 300 ML HOLD OG TUBE FEEDING
--- NOTE | 2020-04-15 20:09 | NUR ---
PER RT VENT CHANGES FIO2-50%.
[2020-04-16] VITALS (80 sets, daily range): BP systolic 60–149; BP diastolic 29–95
[2020-04-16] MEDS: IV D5W 1,000 ML IV PRN ×3 (00:44→21:11)
[2020-04-16] MEDS: METOCLOPRAMIDE HCL 10 MG/2 ML VIAL IV SCH ×4 (00:48→17:19)
[2020-04-16] MEDS: PROPOFOL 100 ML IV PRN ×7 (01:14→21:05)
[2020-04-16] MEDS: PHENYLEPHRINE 100 MG in IV NS 0.9% 240 ML IV PRN (01:49)
[2020-04-16 04:40] LABS: CALCIUM, SERUM 9.6 mg/dL (8.5-10.1); CREATININE 0.9 mg/dL (0.6-1.3); MAGNESIUM 3.2 mg/dL (1.8-2.4); PHOSPHORUS 2.1 mg/dL (2.5-4.9)
[2020-04-16 04:43] LABS: POTASSIUM 2.1 mmol/L (3.5-5.1)
[2020-04-16 05:47] LABS: ABG BASE EXCESS 7.6 mmol/L; ABG OXYGEN SATURATION 91.2 % (92.0-98.5); ABG PCO2 63.4 mmHg (35.0-45.0); ABG PH 7.362 (7.350-7.450); ABG PO2 64.8 mmHg (75.0-100.0); AaDO2 220.4 mmHg; COHb 1.5 % (0.5-1.5); MetHb 0.1 % (0.0-1.5); O2Hb 89.7 % (94.0-97.0); PEEP,BG 10 cm H2O; SITE, ABG Right Radial; VENT MODE, BG AC 24 450 50% +10; VT, ABG 450 mL
[2020-04-16 08:19] LABS: CALCIUM, SERUM 9.8 mg/dL (8.5-10.1); CREATININE 0.9 mg/dL (0.6-1.3)
[2020-04-16 08:35] LABS: POTASSIUM 2.3 mmol/L (3.5-5.1)
[2020-04-16] MEDS ORDERED: POTASSIUM PHOSPHATE MM 15 MMOL in IV NS 0.9% 250 ML IV SCH (10:00)
[2020-04-16] MEDS: APIXABAN 5 MG TABLET PO SCH ×2 (10:35→17:04)
[2020-04-16] MEDS: HYDROCORTISONE SOD SUCCINATE 100 MG/2 ML VIAL IV SCH (10:36)
[2020-04-16] MEDS: MEROPENEM 1 G in IV NS 0.9% 100 ML IV SCH ×2 (10:38→21:00)
[2020-04-16] MEDS: FENTANYL CITRAT IV 2,500 MCG in IV NS 0.9% 200 ML IV PRN (12:05)
[2020-04-16] MEDS ORDERED: NEUTRA PHOS 1 POWD.PACKET PO ONE (16:00)
[2020-04-16] MEDS: DESMOPRESSIN 4 MCG/ML AMPUL SQ SCH ×2 (16:39→21:00)
[2020-04-17] VITALS (95 sets, daily range): BP systolic 82–244; BP diastolic 37–142
[2020-04-17] MEDS: PROPOFOL 100 ML IV PRN ×7 (00:13→23:12)
[2020-04-17] MEDS: METOCLOPRAMIDE HCL 10 MG/2 ML VIAL IV SCH ×4 (00:15→17:14)
[2020-04-17] MEDS: FENTANYL CITRAT IV 2,500 MCG in IV NS 0.9% 200 ML IV PRN ×2 (02:48→18:31)
[2020-04-17] MEDS: IV D5W 1,000 ML IV PRN ×2 (03:50→12:18)
[2020-04-17 04:17] LABS: BASOPHILS % (AUTO) 0.2 % (0.0-2.0); EOSINOPHILS % (AUTO) 4.9 % (0.0-6.0); HEMATOCRIT 38 % (39-51); HEMOGLOBIN 12.1 g/dL (13.5-17.5); LYMPHOCYTES # (AUTO) 1.5 /CMM (0.8-4.8); LYMPHOCYTES % (AUTO) 10.5 % (20.0-44.0); MEAN CORPUSCULAR HGB CONC 32 g/dl (31.0-36.0); MEAN CORPUSCULAR VOLUME 96 fL (80-96); MONOCYTES # (AUTO) 0.8 /CMM (0.1-1.30); MONOCYTES % (AUTO) 5.5 % (2.0-12.0); NEUTROPHILS % (AUTO) 78.9 % (43.0-81.0); PLATELET COUNT (AUTO) 256 /CMM (150-450); RED BLOOD CELL COUNT(AUTO) 3.99 MIL/uL (4.5-6.0)
[2020-04-17] MEDS: PHENYLEPHRINE 100 MG in IV NS 0.9% 240 ML IV PRN (04:18)
[2020-04-17 04:48] LABS: CALCIUM, SERUM 8.9 mg/dL (8.5-10.1); CREATININE 0.8 mg/dL (0.6-1.3); MAGNESIUM 2.8 mg/dL (1.8-2.4); PHOSPHORUS 3.2 mg/dL (2.5-4.9)
[2020-04-17 05:10] LABS: POTASSIUM 2.6 mmol/L (3.5-5.1)
--- NOTE | 2020-04-17 05:30 | NUR ---
CRITICAL LABS RELAYED TO DR. VEL HAMILTON.
[2020-04-17 05:52] LABS: ABG BASE EXCESS 3.6 mmol/L; ABG OXYGEN SATURATION 95.6 % (92.0-98.5); ABG PCO2 56.7 mmHg (35.0-45.0); ABG PH 7.348 (7.350-7.450); ABG PO2 85.1 mmHg (75.0-100.0); AaDO2 207.6 mmHg; COHb 0.7 % (0.5-1.5); MetHb 0.1 % (0.0-1.5); O2Hb 94.8 % (94.0-97.0); PEEP,BG 10 cm H2O; SITE, ABG Right Radial; VT, ABG 450 mL
--- NOTE | 2020-04-17 07:30 | NUR ---
RN OPENING NOTE PATIENT ORALLY INTUBATED. VENT SETTING TOLERATING WELL AC 25 TV 450 FIO2 50 % PEEP 10. SATURATION 97%. NO SIGNS OF DISTRESS NOTED. PATIENT REMAIN SEDATED WITH DIPRIVAN @ 60MCG/KG/MIN AND FENTANYL @2MCG/KG/MIN. PT ON NEOSYNEPHRINE AT 1MCG/KG/MIN. ALL INFUSING WELL. PT WITH IV SITE ON SULLY PICC LINE AND RAC PATENT AND INTACT. OGT INTACT WITH STILL RESIDUALS, FEEDING KEPT ON HOLD. DYER CATH DRAINED WITH YELLOW COLOR URINE. SAFETY MEASUREMENTS ARE IMPLEMENTED PER HOSPITAL POLICY. BED IS IN THE LOWEST POSITION AND SIDE RAILS ARE UP X2. WILL CONTINUE TO MONITOR
--- NOTE | 2020-04-17 08:00 | NUR ---
RN NOTES HOLD ERICKA GOING FOR CT OF ABD TO SEE IF ANY BLEEDING
[2020-04-17] MEDS: MEROPENEM 1 G in IV NS 0.9% 100 ML IV SCH ×2 (08:22→21:36)
[2020-04-17] MEDS: HYDROCORTISONE SOD SUCCINATE 100 MG/2 ML VIAL IV SCH (08:22)
[2020-04-17] MEDS: APIXABAN 5 MG TABLET PO SCH ×2 (08:32→16:43)
[2020-04-17] MEDS: DESMOPRESSIN 4 MCG/ML AMPUL SQ SCH ×2 (08:35→21:00)
[2020-04-17] MEDS: POTASSIUM CL. PREMIX PERIPHER. 50 ML IV SCH ×10 (08:35→17:46)
[2020-04-17] MEDS ORDERED: POTASSIUM PHOSPHATE MM 15 MMOL in IV NS 0.9% 250 ML IV SCH (09:00)
[2020-04-17] MEDS ORDERED: POTASSIUM CL. PREMIX PERIPHER. 50 ML IV SCH (09:30)
--- NOTE | 2020-04-17 10:44 | NUR ---
RN NOTES CT OF ABD DOESN'T SHOW THE BLEEDING WILL CONT FOR ELIQUIS
--- NOTE | 2020-04-17 16:00 | NUR ---
RN NOTES LAB CALLED ABOUT SODIUM [address]
[2020-04-17 16:21] LABS: CALCIUM, SERUM 8.3 mg/dL (8.5-10.1); CREATININE 0.7 mg/dL (0.6-1.3)
--- NOTE | 2020-04-17 18:39 | NUR ---
RN CLOSING NOTE PATIENT ORALLY INTUBATED. VENT SETTING TOLERATING WELL AC 25 TV 450 FIO2 50 % PEEP 10. SATURATION 97%. NO SIGNS OF DISTRESS NOTED. PATIENT REMAIN SEDATED WITH DIPRIVAN @ 60MCG/KG/MIN AND FENTANYL @2MCG/KG/MIN. PT ON NEOSYNEPHRINE AT 0.5MCG/KG/MIN. ALL INFUSING WELL. PT WITH IV SITE ON SULLY PICC LINE AND RAC PATENT AND INTACT. OGT INTACT WITH STILL RESIDUALS, FEEDING KEPT ON HOLD. DYER CATH DRAINED WITH YELLOW COLOR URINE. SAFETY MEASUREMENTS ARE IMPLEMENTED PER HOSPITAL POLICY. BED IS IN THE LOWEST POSITION AND SIDE RAILS ARE UP X2. WILL ENDORSE TO PM NURSE FOR ULYSSES
[2020-04-17] MEDS: NOREPINEPHRINE 8 MG in IV NS 0.9% 242 ML IV PRN (20:56)
[2020-04-18] VITALS (88 sets, daily range): BP systolic 84–200; BP diastolic 20–107
[2020-04-18] MEDS: METOCLOPRAMIDE HCL 10 MG/2 ML VIAL IV SCH ×4 (00:05→17:48)
[2020-04-18] MEDS ORDERED: NOREPINEPHRINE 4 MG/4 ML AMPUL IV ONE (01:34)
[2020-04-18] MEDS: NOREPINEPHRINE 8 MG in IV NS 0.9% 242 ML IV PRN ×3 (02:39→21:21)
[2020-04-18] MEDS: PROPOFOL 100 ML IV PRN ×6 (02:47→23:00)
[2020-04-18] MEDS: FENTANYL CITRAT IV 2,500 MCG in IV NS 0.9% 200 ML IV PRN (03:56)
[2020-04-18 04:18] LABS: BASOPHILS % (AUTO) 0.2 % (0.0-2.0); EOSINOPHILS % (AUTO) 5.4 % (0.0-6.0); HEMATOCRIT 35 % (39-51); HEMOGLOBIN 11.4 g/dL (13.5-17.5); LYMPHOCYTES # (AUTO) 1.7 /CMM (0.8-4.8); LYMPHOCYTES % (AUTO) 12.3 % (20.0-44.0); MEAN CORPUSCULAR HGB CONC 32 g/dl (31.0-36.0); MEAN CORPUSCULAR VOLUME 95 fL (80-96); MONOCYTES # (AUTO) 0.6 /CMM (0.1-1.30); MONOCYTES % (AUTO) 4.2 % (2.0-12.0); NEUTROPHILS # (AUTO) 10.5 /CMM (1.8-8.9); NEUTROPHILS % (AUTO) 77.9 % (43.0-81.0); PLATELET COUNT (AUTO) 255 /CMM (150-450); RED BLOOD CELL COUNT(AUTO) 3.72 MIL/uL (4.5-6.0); WHITE BLOOD COUNT (AUTO) 13.5 K/uL (4.3-11.0)
[2020-04-18 04:39] LABS: CALCIUM, SERUM 8.5 mg/dL (8.5-10.1); CREATININE 0.7 mg/dL (0.6-1.3); MAGNESIUM 2.1 mg/dL (1.8-2.4); PHOSPHORUS 4.2 mg/dL (2.5-4.9); POTASSIUM 3.8 mmol/L (3.5-5.1)
--- NOTE | 2020-04-18 07:59 | NUR ---
PT REMAINS INTUBATED , VETN SETTINGS ETT 7.5/25, AC 24, TV 450, FIO2 50%, PEEP 8. PT SEDATED ON 50 MCG DIPROVANM, FENTANYL AT 2 MCG. PT SULLY PICC AND SULLY MID IN PLACE AND FLUSHED WELL, INFUSING LEVO AT 0.2 MCG AND D5W. PT FEEDING PAUSED, RESIDUAL AT 150 ML. SKIN INTACT, TEMP 99.6, COOLING BLANKET APPLIED. ALL SAFETY MEASURES IN PLACE, WILL CONTINUE TO MONITOR
[2020-04-18 08:26] LABS: ABG BASE EXCESS 4.5 mmol/L; ABG OXYGEN SATURATION 92.3 % (92.0-98.5); ABG PH 7.368 (7.350-7.450); ABG PO2 64.4 mmHg (75.0-100.0); AaDO2 230.2 mmHg; COHb 1.5 % (0.5-1.5); MetHb 0.2 % (0.0-1.5); O2Hb 90.7 % (94.0-97.0); PEEP,BG 8 cm H2O; SITE, ABG Left Radial; VT, ABG 430 mL
--- NOTE | 2020-04-18 09:13 | NUR ---
PT FENTANYL SEDATION PAUSED AT 0845 FOR SEDATION VACATION PER MD ALEXIS, DIPROVAN BEING TITRATED DOWN FROM 50 MCG, CURRENTLY AT 40 MCG
[2020-04-18] MEDS: MEROPENEM 1 G in IV NS 0.9% 100 ML IV SCH ×2 (09:46→21:59)
[2020-04-18] MEDS: APIXABAN 5 MG TABLET PO SCH ×2 (09:56→18:05)
--- NOTE | 2020-04-18 11:00 | NUR ---
PT OFF FENTANYL PER MD PELEG TO ASSESS NEUROLOGIC STATUS. DIPROVAN DECREASED TO 35 MCG, NO PUPILLARY RESPONSE. NO RESPIRATORY DISTRESS OR AGITATION NOTED, VITALS WNL; NO ORDERS RECEIVED TO RESUME FENTANYL. PT REMAINS SEDATED ON 35 MCG PROPOFOL
[2020-04-18] MEDS: DESMOPRESSIN 4 MCG/ML AMPUL SQ SCH ×2 (11:02→21:00)
[2020-04-18] MEDS: HYDROCORTISONE SOD SUCCINATE 100 MG/2 ML VIAL IV SCH (11:02)
--- NOTE | 2020-04-18 17:00 | NUR ---
MD COLLINS NOTIFIED OF RESIDUAL THAT REMAINS 250 ML DESPITE FEEDINGS PAUSED FOR 4 HOURS, MD COLLINS OK WITH PAUSING FEEDINGS, WILL CONTINUE TO MONITOR RESIDUAL AMOUNT
[2020-04-18] MEDS: IV D5W 1,000 ML IV PRN ×2 (19:00→23:21)
--- NOTE | 2020-04-18 19:00 | NUR ---
PER UROLOGIC NURSE JAREK, PT TO HAVE MEDS BRILINTA SENT TO PT PRIMARY PHARMACY [facility]. [facility] DOES NOT HAVE THE MED IN STOCK, SO PT MAY SUPERVISOR SCOURING PADS MED AT [facility]. UNABLE TO REACH PT DAUGHTER RAUL IF SHE CAN SUPERVISOR SCOURING PADS THE MEDICATION. PER UROLOGIC NURSE, DR SULTANA WILL NOT RELEASE HER UNTIL PT FAMILY HAS MEDICATION AT HOME. Addendum: 04/18/20 at 2133 by BARTOLO CASSIDY RN DISREGARD; CHARTED ON WRONG PATIENT
[2020-04-19] VITALS (76 sets, daily range): BP systolic 75–155; BP diastolic 36–77
[2020-04-19] MEDS: METOCLOPRAMIDE HCL 10 MG/2 ML VIAL IV SCH ×5 (00:36→23:40)
[2020-04-19] MEDS: PROPOFOL 100 ML IV PRN ×4 (02:44→18:05)
[2020-04-19] MEDS: IV D5W 1,000 ML IV PRN ×4 (02:57→22:22)
[2020-04-19 03:48] LABS: BASOPHILS % (AUTO) 0.3 % (0.0-2.0); EOSINOPHILS % (AUTO) 9.8 % (0.0-6.0); HEMATOCRIT 28 % (39-51); HEMOGLOBIN 9.1 g/dL (13.5-17.5); LYMPHOCYTES # (AUTO) 1.1 /CMM (0.8-4.8); LYMPHOCYTES % (AUTO) 14.5 % (20.0-44.0); MEAN CORPUSCULAR HGB CONC 33 g/dl (31.0-36.0); MEAN CORPUSCULAR VOLUME 95 fL (80-96); MONOCYTES # (AUTO) 0.3 /CMM (0.1-1.30); MONOCYTES % (AUTO) 3.7 % (2.0-12.0); NEUTROPHILS # (AUTO) 5.6 /CMM (1.8-8.9); NEUTROPHILS % (AUTO) 71.7 % (43.0-81.0); PLATELET COUNT (AUTO) 198 /CMM (150-450); RED BLOOD CELL COUNT(AUTO) 2.92 MIL/uL (4.5-6.0); WHITE BLOOD COUNT (AUTO) 7.8 K/uL (4.3-11.0)
[2020-04-19 04:12] LABS: CALCIUM, SERUM 7.8 mg/dL (8.5-10.1); CREATININE 0.9 mg/dL (0.6-1.3); MAGNESIUM 1.8 mg/dL (1.8-2.4); PHOSPHORUS 2.6 mg/dL (2.5-4.9); POTASSIUM 2.9 mmol/L (3.5-5.1)
--- NOTE | 2020-04-19 07:38 | NUR ---
RECEIVED PATIENT IN BED. NO ACUTE DISTRESS NOTED. PATIENT SEDATED ON PROPOFOL. PATIENT ON MECHANICAL VENTILATOR, SATURATING WELL (100%). PATIENT ON WORKFORCE MANAGER, NSR NOTED. PATIENT OGT IN PLACE, CLAMPED DUE TO EXCESSIVE RESIDUAL. PATIENT DYER CATHETER IN PLACE, INTACT, DRAINING TO GRAVITY. PATIENT SULLY PICC IN PLACE, INTACT, PATENT. PATIENT SAFETY MEASURES MAINTAINED. WILL CONTINUE TO MONITOR.
[2020-04-19 07:39] LABS: ABG BASE EXCESS 2.4 mmol/L; ABG OXYGEN SATURATION 95.4 % (92.0-98.5); ABG PCO2 54.7 mmHg (35.0-45.0); ABG PH 7.339 (7.350-7.450); ABG PO2 82.5 mmHg (75.0-100.0); AaDO2 212.5 mmHg; COHb 1.2 % (0.5-1.5); MetHb 0.2 % (0.0-1.5); O2Hb 94.1 % (94.0-97.0); PEEP,BG 8 cm H2O; SITE, ABG Right Radial; VT, ABG 430 mL
[2020-04-19] MEDS: HYDROCORTISONE SOD SUCCINATE 100 MG/2 ML VIAL IV SCH (08:30)
[2020-04-19] MEDS: POTASSIUM CL. PREMIX PERIPHER. 50 ML IV SCH ×4 (08:30→12:07)
[2020-04-19] MEDS: MEROPENEM 1 G in IV NS 0.9% 100 ML IV SCH ×2 (08:30→21:00)
[2020-04-19] MEDS: DESMOPRESSIN 4 MCG/ML AMPUL SQ SCH ×2 (08:31→21:00)
[2020-04-19] MEDS: APIXABAN 5 MG TABLET PO SCH ×2 (08:32→17:26)
--- NOTE | 2020-04-19 18:33 | NUR ---
PATIENT IN BED. NO ACUTE DISTRESS NOTED. PATIENT SEDATED ON PROPOFOL. PATIENT ON MECHANICAL VENTILATOR, SATURATING WELL (>98%). PATIENT ON SHAKER PLATE OPERATOR, NSR NOTED. PATIENT OGT IN PLACE, CLAMPED DUE TO EXCESSIVE RESIDUAL. PATIENT DYER CATHETER IN PLACE, INTACT, DRAINING TO GRAVITY. PATIENT SULLY PICC IN PLACE, INTACT, PATENT. PATIENT SAFETY MEASURES MAINTAINED. WILL ENDORSE PLAN OF CARE TO ONCOMING SHIFT
[2020-04-20] VITALS (20 sets, daily range): BP systolic 45–143; BP diastolic 24–66
[2020-04-20] MEDS: IV D5W 1,000 ML IV PRN ×4 (02:20→13:53)
[2020-04-20] MEDS: PROPOFOL 100 ML IV PRN (03:01)
[2020-04-20 03:46] LABS: BASOPHILS # (AUTO) 0.1 /CMM (0.0-0.2); BASOPHILS % (AUTO) 1.1 % (0.0-2.0); EOSINOPHILS % (AUTO) 7.3 % (0.0-6.0); HEMATOCRIT 25 % (39-51); HEMOGLOBIN 8.2 g/dL (13.5-17.5); LYMPHOCYTES # (AUTO) 1.1 /CMM (0.8-4.8); LYMPHOCYTES % (AUTO) 15.2 % (20.0-44.0); MEAN CORPUSCULAR HGB CONC 33 g/dl (31.0-36.0); MEAN CORPUSCULAR VOLUME 93 fL (80-96); MONOCYTES # (AUTO) 0.3 /CMM (0.1-1.30); MONOCYTES % (AUTO) 4.5 % (2.0-12.0); NEUTROPHILS % (AUTO) 71.9 % (43.0-81.0); PLATELET COUNT (AUTO) 117 /CMM (150-450); RED BLOOD CELL COUNT(AUTO) 2.63 MIL/uL (4.5-6.0); WHITE BLOOD COUNT (AUTO) 6.9 K/uL (4.3-11.0)
[2020-04-20 04:02] LABS: CALCIUM, SERUM 7.9 mg/dL (8.5-10.1); CREATININE 0.7 mg/dL (0.6-1.3); MAGNESIUM 1.7 mg/dL (1.8-2.4); PHOSPHORUS 2.2 mg/dL (2.5-4.9)
[2020-04-20 05:15] LABS: ABG OXYGEN SATURATION 90.2 % (92.0-98.5); ABG PCO2 54.2 mmHg (35.0-45.0); ABG PH 7.326 (7.350-7.450); ABG PO2 60.2 mmHg (75.0-100.0); AaDO2 235.3 mmHg; COHb 2.1 % (0.5-1.5); MetHb 0.1 % (0.0-1.5); O2Hb 88.2 % (94.0-97.0); SITE, ABG Right Radial
[2020-04-20] MEDS: METOCLOPRAMIDE HCL 10 MG/2 ML VIAL IV SCH ×3 (05:41→17:54)
[2020-04-20] MEDS ORDERED: Magnesium 1GM/D5W 100ML PREMIX 100 ML IV SCH (08:00)
--- NOTE | 2020-04-20 08:00 | NUR ---
ICU/RN PT IS INTUBATED ON THE VENT .AC MODE,FIO2-505.SAT O2-100%.SEDATED ON DIPRIVAN.NO GAG REFLEX.PT IS NOT RESPONDING ON ANY PAIN STIMULATION .HX OF CODE BLUE-2.PEA.SR ON MONITOR.OG CLAMPED.PT IS NPO AT THIS TIME.GENERALIZED EDEMA PRESENT.F/C IN PLACE WITH NO URINE OUTPUT.SUCTION PROVIDED REPOSITION FOR COMFORT.LABS REVIEW. NOTIFIED.NEW ORDERS RECEIVED.
[2020-04-20] MEDS: POTASSIUM PHOSPHATE MM 7.5 MMOL in IV NS 0.9% 100 ML IV SCH ×2 (08:23→11:24)
[2020-04-20] MEDS: MEROPENEM 1 G in IV NS 0.9% 100 ML IV SCH (08:23)
--- NOTE | 2020-04-20 09:00 | NUR ---
ICU/RN DUE MEDS ARE GIVEN ORDERED.SEDATION VACATION PROVIDED.DIPRIVAN STOP.PT IS NOT RESPONSIVE ON PAIN STIMULATION.NO GAG REFLEX,NO COUGH REFLEX. MD NOTIFIED.
[2020-04-20] MEDS: HYDROCORTISONE SOD SUCCINATE 100 MG/2 ML VIAL IV SCH (09:18)
[2020-04-20] MEDS: DESMOPRESSIN 4 MCG/ML AMPUL SQ SCH (09:18)
[2020-04-20] MEDS: APIXABAN 5 MG TABLET PO SCH ×2 (09:19→17:55)
--- NOTE | 2020-04-20 16:45 | NUR ---
ICU/RN PT IS PEA.CODE BLUE INITIATED.SEE CODE BLUE RECORD.
--- NOTE | 2020-04-20 17:05 | NUR ---
ICU/RN PT HAS ASYSTOLE ON MONITOR.CODE BLUE#2 INITIATED.MD NOTIFIED.FAMILY NOTIFIED.FAMILY WANTS EVERYTHING TO BE DONE.
[2020-04-20] MEDS ORDERED: EPINEPHRINE (1:10,000) SYRINGE 1 MG/10 ML DISP.SYRIN IVP ONE ×2 (17:17→18:20)
[2020-04-20] MEDS: PHENYLEPHRINE 100 MG in IV NS 0.9% 240 ML IV PRN (17:53)
--- NOTE | 2020-04-20 18:20 | NUR ---
ICU/RN ASYSTOLE ON MONITOR.,NO BLOOD PRESSURE.CODE BLUE#3 INITIATED.
--- NOTE | 2020-04-20 18:30 | NUR ---
ICU/RN AFTER THIRD CODE BLUE PT IS .NO HEART BEATS,NO RESPIRATIONS, NO CHEST MOVEMENTS,ASYSTOLE ON MONITOR ,PUPILS FIX AND DILATED.FAMILY NOTIFIED.
--- NOTE | 2020-04-20 20:00 | NUR ---
ICU/RN BODY TAKEN TO TITI SHOLA. FAMILY HAS NO MORTUARY ARRANGEMENT AT THIS TIME.
== END 2020-04-20 18:30 | disposition expired | DRG 870 ==
LOC: ER 11:22 → TRANSITION 16:09 → TELE1 03-27 05:51 → ICUOV 03-30 11:30 → ICU 03-31 10:43
PROVIDERS: ADMIT Nurse Practitioner Acute Care; ATTEND Internal Medicine
PROC: XW033E5 Introduction of Remdesivir Anti-infective into Peripheral Vein, Percutaneous Approach, New Technology Group 5 (ICD-10-PCS; principal; 2020-03-26)
PROC: XW13325 Transfusion of Convalescent Plasma (Nonautologous) into Peripheral Vein, Percutaneous Approach, New Technology Group 5 (ICD-10-PCS; 2020-03-28)
PROC: 05HY33Z Insertion of Infusion Device into Upper Vein, Percutaneous Approach (ICD-10-PCS; 2020-03-31)
PROC: XW033H5 Introduction of Tocilizumab into Peripheral Vein, Percutaneous Approach, New Technology Group 5 (ICD-10-PCS; 2020-04-01)
PROC: 5A1955Z Respiratory Ventilation, Greater than 96 Consecutive Hours (ICD-10-PCS; 2020-04-04)
PROC: 0BH18EZ Insertion of Endotracheal Airway into Trachea, Via Natural or Artificial Opening Endoscopic (ICD-10-PCS; 2020-04-04)
PROC: 5A12012 Performance of Cardiac Output, Single, Manual (ICD-10-PCS; 2020-04-05)
PROC: 02HV33Z Insertion of Infusion Device into Superior Vena Cava, Percutaneous Approach (ICD-10-PCS; 2020-04-06)
PROC: B548ZZA Ultrasonography of Superior Vena Cava, Guidance (ICD-10-PCS; 2020-04-06)
PROC: 5A2204Z Restoration of Cardiac Rhythm, Single (ICD-10-PCS; 2020-04-09)
PROC: 5A12012 Performance of Cardiac Output, Single, Manual (ICD-10-PCS; 2020-04-20)
DX: A41.89 Other specified sepsis (principal); U07.1 COVID-19; J96.01 Acute respiratory failure with hypoxia; J12.82 Pneumonia due to coronavirus disease 2019; N17.0 Acute kidney failure with tubular necrosis; J15.9 Unspecified bacterial pneumonia; R65.21 Severe sepsis with septic shock; G93.1 Anoxic brain damage, not elsewhere classified; E27.40 Unspecified adrenocortical insufficiency; E23.2 Diabetes insipidus; J93.9 Pneumothorax, unspecified; I46.9 Cardiac arrest, cause unspecified; I48.91 Unspecified atrial fibrillation; E83.39 Other disorders of phosphorus metabolism; I10 Essential (primary) hypertension; E66.9 Obesity, unspecified; Z68.30 Body mass index [BMI] 30.0-30.9, adult; E11.9 Type 2 diabetes mellitus without complications; R74.01 Elevation of levels of liver transaminase levels; N13.9 Obstructive and reflux uropathy, unspecified; N25.0 Renal osteodystrophy; I95.9 Hypotension, unspecified
CPT/HCPCS: 31720; 36410; 36415; 36569; 36600; 71045-TC; 74150-TC; 80048-TC; 80053-TC; 80076-TC; 80202-TC; 81001; 82247-TC; 82248-TC; 82533; 82550-TC; 82728-TC; 82803-TC; 82962-TC; 83605-TC; 83615-TC; 83735-TC; 83880; 84100-TC; 84478-TC; 84484-TC; 85025-TC; 85378-TC; 85385-TC; 85610-TC; 85730-TC; 86140-TC; 86480; 86850-TC; 87040-TC; 87081-TC; 87086-TC; 87899; 94002-TC; 94003-TC; 94760-TC; 94762-TC; 94799-TC; A4216; A4217; C1751; G0378; J0171; J0330; J0696; J1100; J1200; J1650; J1720; J1940; J2185; J2270; J2370; J2597; J2765; J3010; J3262; J3370; J3475; J3480; J3490; J7030; J7040; J7042; J7050; J7060; J7070; P9017-BL; U0003